=== PATIENT | female | born 1950 | race Caucasian/White ===

== ENCOUNTER 2022-01-22 08:42 | Outpatient (CLI) | payer MEDICARE, SELFPAY ==
--- NOTE | 2022-01-22 08:58 | MM_ITS ---
WS: [id number] BILATERAL SCREENING DIGITAL BREAST TOMOSYNTHESIS MAMMOGRAM WITH CAD HISTORY: SCREEN COMPARISON: 07/04/2020 Bilateral CC and MLO views with tomosynthesis and synthetic mammography submitted. Computer aided det ection analyzed. Breast composition: There are scattered areas of fibroglandular density. No suspicious masses, microc alcifications or architectural distortion. Stable area of mild architectural distortion in the LEFT l ateral breast seen on the CC projection. MM/[place] [id number] IMPRESSION: BI-RADS: 2-Benign FOLLOW UP: 1 Year Follow-up
== END 2022-01-22 08:43 | disposition home or self-care (01) ==
PROVIDERS: Visit Provider Family Medicine
DX: Z12.31 Encounter for screening mammogram for malignant neoplasm of breast (principal)
CPT/HCPCS: 77063; 77067

== ENCOUNTER 2022-09-01 12:42 | Outpatient (CLI) | payer MEDICARE, SELFPAY ==
--- NOTE | 2022-09-01 12:51 | XRR_ITS ---
PROCEDURE INFORMATION: Exam: XR Chest Exam date and time: 09/01/2022 1:08 PM Age: 71 years old Clinical indication: Condition or disease; Lung condition and disease; Asthma; Prior surgery; Surgery type: Lynx, for acid reflux; Additional info: Asthma exacerbation TECHNIQUE: Imaging protocol: Radiologic exam of the chest. Views: 2 views. COMPARISON: No relevant prior studies available. FINDINGS: Tubes, catheters and devices: LINX device noted. Surgical clips are seen projecting over the right axillary region. Lungs: Unremarkable. No consolidation. Pleural spaces: Unremarkable. No pleural effusion. No pneumothorax. Heart/Mediastinum: Unremarkable. No cardiomegaly. Bones/joints: Degenerative changes of the spine seen. Organs: Cholecystectomy clips project over the right upper quadrant. XR/XR chest 2V* [id number] IMPRESSION: No evidence of active cardiopulmonary disease.
== END 2022-09-01 12:43 | disposition home or self-care (01) ==
LOC: RAD 12:45
PROVIDERS: PCP Family Medicine; Visit Provider Family Medicine
DX: J45.901 Unspecified asthma with (acute) exacerbation (principal)
CPT/HCPCS: 71046

== ENCOUNTER → 2022-09-24 11:11 | Outpatient (BNVA) | payer MEDICARE, SELFPAY | PROVIDERS: PCP Family Medicine; Visit Provider Family Medicine | DX: R73.03 Prediabetes (principal); N28.9 Disorder of kidney and ureter, unspecified; E78.5 Hyperlipidemia, unspecified; M79.603 Pain in arm, unspecified; F43.9 Reaction to severe stress, unspecified; F31.81 Bipolar II disorder | CPT/HCPCS: 80053; 80061; 83036; 84439; 84443; 85025 ==

== ENCOUNTER → 2022-11-30 13:37 | Outpatient (BNVA) | payer MEDICARE, SELFPAY | PROVIDERS: PCP Family Medicine; Visit Provider Nurse Practitioner Family | DX: M25.562 Pain in left knee (principal) | CPT/HCPCS: 73562 ==

== ENCOUNTER → 2022-12-03 10:15 | Outpatient (BNVA) | payer MEDICARE, SELFPAY | PROVIDERS: PCP Family Medicine; Visit Provider Nurse Practitioner Family | DX: S89.92XA Unspecified injury of left lower leg, initial encounter (principal); W01.0XXA Fall on same level from slipping, tripping and stumbling without subsequent striking against object, initial encounter; M17.12 Unilateral primary osteoarthritis, left knee | CPT/HCPCS: 20610; 99203; J1100; J2795; J3301 ==

== ENCOUNTER 2023-01-01 06:00 | Outpatient (CLI) | payer MEDICARE, SELFPAY | END 2023-01-01 06:01 | disposition home or self-care (01) | LOC: SPT 01-04 12:24 | PROVIDERS: PCP Family Medicine; Visit Provider Student in an Organized Health Care Education/Training Program | DX: Z46.89 Encounter for fitting and adjustment of other specified devices (principal); M25.562 Pain in left knee; M17.12 Unilateral primary osteoarthritis, left knee | CPT/HCPCS: 97760; 99204; L1812 ==

== ENCOUNTER → 2023-01-04 08:41 | Outpatient (BNVA) | payer MEDICARE, SELFPAY | PROVIDERS: PCP Family Medicine; Visit Provider Family Medicine | DX: R79.89 Other specified abnormal findings of blood chemistry (principal); N28.9 Disorder of kidney and ureter, unspecified; R73.03 Prediabetes | CPT/HCPCS: 84439; 84443; 85025 ==

== ENCOUNTER → 2023-02-01 08:34 | Outpatient (BNVA) | payer MEDICARE, SELFPAY | PROVIDERS: PCP Family Medicine; Visit Provider Student in an Organized Health Care Education/Training Program | DX: M75.41 Impingement syndrome of right shoulder (principal) | CPT/HCPCS: 20610; 73030; 99214; J3301 ==

== ENCOUNTER → 2023-02-15 08:40 | Outpatient (BNVA) | payer MEDICARE, SELFPAY | PROVIDERS: PCP Family Medicine; Visit Provider Student in an Organized Health Care Education/Training Program | DX: M17.12 Unilateral primary osteoarthritis, left knee | CPT/HCPCS: 99213 ==

== ENCOUNTER → 2023-03-30 08:31 | Outpatient (BNVA) | payer MEDICARE, SELFPAY | PROVIDERS: PCP Family Medicine; Visit Provider Family Medicine | DX: R79.89 Other specified abnormal findings of blood chemistry (principal); E78.5 Hyperlipidemia, unspecified | CPT/HCPCS: 84439; 84443 ==

== ENCOUNTER → 2023-04-13 11:09 | Outpatient (BNVA) | payer MEDICARE, SELFPAY | PROVIDERS: PCP Family Medicine; Visit Provider Student in an Organized Health Care Education/Training Program | DX: M17.12 Unilateral primary osteoarthritis, left knee (principal) | CPT/HCPCS: 99213 ==

== ENCOUNTER → 2023-05-04 15:15 | Outpatient (BNVA) | payer MEDICARE, SELFPAY | PROVIDERS: PCP Family Medicine; Visit Provider Physician Assistant | DX: M17.12 Unilateral primary osteoarthritis, left knee | CPT/HCPCS: 99214 ==

== ENCOUNTER 2023-05-28 15:30 | Outpatient (CLI) | payer MEDICARE, SELFPAY ==
--- NOTE | 2023-05-28 16:00 | CT_ITS ---
WS: [id number] CT LEFT knee, noncontrast HISTORY: M17.12 - Unilateral primary osteoarthritis, left knee TECHNIQUE: Protocol for YVROSE total knee replacement has been obtained. This includes axial imaging th rough the LEFT hip, LEFT knee and LEFT ankle. DLP: 984.17 mGy.cm COMPARISON: 11/30/2022 Pelvis: Mild SI joint degeneration. Mild osteopenia. No destructive bone lesions. LEFT knee: No fracture or dislocation. Mild tricompartment arthritis, greatest involving the medial c ompartment. Small marginal osteophytes. Small suprapatellar joint effusion. LEFT ankle: Negative. IMPRESSION: CT imaging provided for YVROSE robotic total knee replacement.
== END 2023-05-28 15:31 | disposition home or self-care (01) ==
LOC: RAD 15:30
PROVIDERS: PCP Family Medicine; Visit Provider Student in an Organized Health Care Education/Training Program
DX: M17.12 Unilateral primary osteoarthritis, left knee (principal); M25.762 Osteophyte, left knee; M25.462 Effusion, left knee
CPT/HCPCS: 73700

== ENCOUNTER 2023-05-31 11:06 | Outpatient (CLI) | payer MEDICARE, SELFPAY ==
[2023-05-31 12:00] LABS: Add Urine Microscopic? NO; Charge for UA Resulting for Rev
[2023-05-31 12:02] LABS: Basophils % 0.8 %; Eosinophils # 0.1 10^3/uL (0.0-0.8); Eosinophils % 1.7 %; Hematocrit 46.5 % (36-47); Lymphocytes # 1.7 10^3/uL (0.8-4.8); Lymphocytes % 35.1 %; Mean Corpuscular Hemoglobin 32.3 pg (27-33); Mean Corpuscular Volume 100.9 fl (85-98); Mean Platelet Volume 8.3 fL (7.4-10.4); Monocytes # 0.3 10^3/uL (0.2-0.9); Monocytes % 6.5 %; Neutrophils # 2.66 10^3/uL (1.8-7.7); Neutrophils % 55.7 %; Nucleated Red Blood Cells % 0 %; Platelet Count 216 10^3/cmm (157-399); Red Blood Count 4.61 10^6/uL (3.85-5.65); Red Cell Distribution Width 12.6 % (12.1-15.1); White Blood Count 4.78 10^3/uL (3.29-11.43)
[2023-05-31 12:03] LABS: Bilirubin Urine Neg (Negative); Blood Urine Neg (Negative); Glucose Urine UA Norm (Normal); Ketones Urine Negative (Negative); Leukocyte Esterase Urine Negative (Negative); Nitrate Urine Negative (Negative); Protein Urine Neg (Negative); Specific Gravity, Urine 1.005 (1.005-1.030); Urine Appearance Clear (CLEAR); Urine Color Yellow (Yellow); Urobilinogen Urine Norm (Negative); pH Urine 7 (5-7)
[2023-05-31 12:21] LABS: Alanine Aminotransferase 18 U/L (0-33); Albumin Level 4.3 g/dL (3.5-5.2); Alkaline Phosphatase 50 U/L (35-105); Anion Gap 13.2 (5-19); Aspartate Amino Transferase 25 U/L (0-32); Blood Urea Nitrogen 16 mg/dL (8-23); Calcium 9.3 mg/dL (8.5-10.5); Carbon Dioxide 24 mmol/L (22-29); Chloride 108 mmol/L (98-107); Globulin 2.2 g/dL (1.3-4.6); Glucose 85 mg/dL (65-115); Osmolality Calculated 292 mOsm/kg (285-295); Potassium 4.2 mmol/L (3.5-5.1); Sodium 141 mmol/L (136-145); Total Bilirubin 0.4 mg/dL (0.15-1.2); Total Protein 6.5 g/dL (6.6-8.7)
== END 2023-05-31 11:07 | disposition home or self-care (01) ==
LOC: LAB 11:08
PROVIDERS: PCP Family Medicine; Visit Provider Physician Assistant
DX: Z01.818 Encounter for other preprocedural examination (principal); M17.12 Unilateral primary osteoarthritis, left knee
CPT/HCPCS: 36415; 80053; 81003; 85025

== ENCOUNTER → 2023-06-01 13:12 | Outpatient (BNVA) | payer MEDICARE, SELFPAY | PROVIDERS: PCP Family Medicine; Visit Provider Physician Assistant | DX: M17.12 Unilateral primary osteoarthritis, left knee (principal) | CPT/HCPCS: 99214 ==

== ENCOUNTER 2023-06-14 15:05 | Observation (INO) | payer MEDICARE, SELFPAY ==
[2023-06-14] VITALS (13 sets, daily range): BP systolic 100–136; BP diastolic 45–70; PULSE 68–82; RESP 16–18; TEMP 36.1–36.5; O2SAT 92–99; BMI 26.6
[2023-06-14] MEDS: acetaminophen 1,000 MG/100 ML PIGGYBACK 400 MG IV ×2 (08:06→16:43)
[2023-06-14] MEDS: ketorolac 30 mg/mL INJ IVP (08:06)
[2023-06-14] MEDS: lactated ringers 500 ML IV (08:06)
[2023-06-14] MEDS: sodium chloride 0.9% 1,000 ML 30 ML IV (08:07)
[2023-06-14 08:12] LABS: Glucose Point of Care 92 mg/dL (70-110)
--- NOTE | 2023-06-14 08:35 | ANES.PREANE2 ---
Pre-Anesthetic Assessment Height/Weight: Height 1.63 m Weight 70.307 kg Temp Pulse Resp BP Pulse Ox O2 Del Method 97.5 F L 80 16 136/68 96 Room Air 06/14/23 07:57 06/14/23 07:57 06/14/23 07:57 06/14/23 07:57 06/14/23 07:57 06/14/23 07:58 Preop Diagnosis: Left knee DJD Operation Date: 06/14/23 09:05 Proposed Procedures p Left Leno Robot Total Knee Arthroplasty(Left) - Baudilio Arredondo DO Familial anesthetic complications: None Was Beta Chelle taken within 24 hours: N/A Was Clonidine taken within 24 hours: N/A Last intake: Intake Last Liquid Date 06/13/23 Last Liquid Time 22:00 Last Solid Date 06/13/23 Last Solid Time 22:00 Social No alcohol and No tobacco Exam alert, oriented x 3, clear to auscultation bilaterally and regular rate & rhythm Airway Mallampati: Class I Dentition: full Pulmonary Asthma GI Gastroesophageal Reflux Disease Metabolic Diabetes Mellitus and Hyperlipidemia Anesthetic Plan ASA status: 3 Anesthesia: Regional (specify below) Risk of > 500 ml blood loss (7ml/kg in children): No Medications/Allergies Home Medications Medication Instructions Recorded Confirmed Last Taken Type atorvastatin 80 mg tablet 80 mg PO DAILY 02/20/22 06/14/23 06/13/23 History meclizine 25 mg tablet 25 mg PO DAILY PRN Dizziness 02/20/22 06/14/23 06/12/23 History rizatriptan 10 mg tablet 10 mg PO DIRECTED PRN Migraine 02/20/22 06/14/23 1 Week Ago History Headache ~06/07/23 fluticasone propionate 50 1 spray intranasal DAILY PRN 09/15/22 06/14/23 06/13/23 History mcg/actuation nasal allergies spray,suspension levocetirizine 5 mg tablet (Xyzal) 2.5 mg PO DAILY PRN allergies 09/15/22 06/14/23 06/13/23 History metformin 500 mg tablet 500 mg PO DAILY #90 tabs 09/24/22 06/14/23 06/13/23 Rx ibuprofen 800 mg tablet 800 mg PO Q8H PRN pain #20 tabs 11/30/22 06/14/23 06/12/23 Rx hinged knee brace #1 ea 01/01/23 06/14/23 Unknown Rx albuterol sulfate 90 mcg/actuation 2 puff inhalation Q4H PRN 03/15/23 06/14/23 06/12/23 Rx aerosol inhaler shortness of breath or wheezing #8.5 grams buspirone 10 mg tablet 10 mg PO BID #60 tabs 03/18/23 06/14/23 06/13/23 Rx clomipramine 50 mg capsule 100 mg PO DAILY #60 caps 03/18/23 06/14/23 06/13/23 Rx duloxetine 60 mg capsule,delayed 120 mg PO DAILY #60 caps 03/18/23 06/14/23 06/13/23 Rx release aripiprazole 15 mg tablet (Abilify) 15 mg PO DAILY #30 tabs 04/05/23 06/14/23 06/13/23 Rx omeprazole 40 mg capsule,delayed 40 mg PO BID #180 caps 05/10/23 06/14/23 06/13/23 Rx release topiramate 200 mg tablet 200 mg PO BID 06/14/23 06/14/23 06/13/23 History Allergies Allergy/AdvReac Type Severity Reaction Status Date / Time codeine Allergy ADR-Nausea Verified 06/14/23 08:21 Penicillins Allergy ALGY-Rash Verified 06/14/23 08:21 Current Medications Generic Name Dose Route Start Last Admin Trade Name Freq PRN Reason Stop Dose Admin Sodium Chloride 1,000 mls @ 30 mls/hr 06/14/23 07:45 06/14/23 08:07 Sodium Chloride 0.9% IV 06/15/23 07:44 30 mls/hr .Q24H SOFIA Administration PFSH Anesthesia Medical History Addictive gambling Kidney disease Psychiatric care Family History Other Chronic kidney disease (CKD) Diabetes Social History Smoking and tobacco/nicotine status: never used tobacco/nicotine Second hand smoke exposure: No Alcohol intake: former Substance/Drug Use: never Data Anesthesia Cardiac Studies: No Data to Display
[2023-06-14 08:52] LABS: Basophils # 0.1 10^3/uL (0.0-0.1); Basophils % 0.9 %; Eosinophils # 0.1 10^3/uL (0.0-0.8); Eosinophils % 2.1 %; Lymphocytes # 1.5 10^3/uL (0.8-4.8); Lymphocytes % 25.9 %; Mean Corpuscular HGB Conc 32.4 g/dL (30-55); Mean Corpuscular Volume 101.6 fl (85-98); Mean Platelet Volume 8.5 fL (7.4-10.4); Monocytes # 0.4 10^3/uL (0.2-0.9); Monocytes % 7.2 %; Neutrophils # 3.64 10^3/uL (1.8-7.7); Neutrophils % 63.7 %; Nucleated Red Blood Cells % 0 %; Platelet Count 214 10^3/cmm (157-399); Red Blood Count 4.43 10^6/uL (3.85-5.65); Red Cell Distribution Width 12.4 % (12.1-15.1); White Blood Count 5.71 10^3/uL (3.29-11.43)
[2023-06-14 09:00] LABS: Blood Urea Nitrogen 18 mg/dL (8-23); Calcium 8.8 mg/dL (8.5-10.5); Carbon Dioxide 23 mmol/L (22-29); Chloride 109 mmol/L (98-107); Glucose 93 mg/dL (65-115); Osmolality Calculated 294 mOsm/kg (285-295); Sodium 141 mmol/L (136-145)
[2023-06-14 09:15] LABS: Anion Gap 12.6 (5-19); Potassium 3.6 mmol/L (3.5-5.1)
--- NOTE | 2023-06-14 10:21 | ANES.PROC ---
Anesthesia Procedures Procedure/Date: 06/14/23 Nerve Block ^: Nerve Block 1: Main Anesthesia: spinal anesthesia block Time Out Performed: Yes Consent: requested by attending/covering physician, from patient, from other, risks and benefits reviewed and patient agrees to proceed Nerve block location: adductor canal (L) Anesthesia monitors applied: pulse oximetry, EKG, BP cuff and oxygen Nerve block position: supine Anesthetic Used: ropivicaine 0.5% (30 ml) and with decadron (4 mg) Ultrasound used to: recognize landmarks and visualize and ID femerol nerve Nerve Stimulator Used?: No Interscalene/Femoral BLK: 4 stimuplex 21 g needle used for position and inplane approach, visualize local anesthetic spread and no vascular puncture identified Injection: neg aspiration of heme Patient Tolerated Procedure: well Complications: none
--- NOTE | 2023-06-14 10:45 | W.PM.OPSUD ---
Surgery/Procedure H&P Update DATE OF PROCEDURE: June 14, 2023 DATE H&P PERFORMED: 06/02/23 H&P UPDATE INFORMATION: I have reviewed H&P completed within last 30 days, I have examined patient prior to procedure and No changes to prior documentation CHANGES TO PREVIOUS DOCUMENTATION: none PREOP DIAGNOSIS: Left knee DJD PRIMARY INDICATION FOR PROCEDURE: Left knee degenerative joint disease PLANNED PROCEDURE: Operation Date: 06/14/23 09:05 Proposed Procedures p Left Leno Robot Total Knee Arthroplasty(Left) - Baudilio Arredondo DO
[2023-06-14] MEDS: ceFAZolin 2,000 MG in sodium chloride 0.9% (plus) 50 ML 100 MG IV ×2 (11:14→19:31)
[2023-06-14] MEDS: tranexamic acid 1,000 mg/10mL SDV 1000 MG IV (11:20)
[2023-06-14] MEDS: ROPivacaine 0.2% Premix 100 mL 200 MG INTRA-ARTI (12:07)
[2023-06-14] MEDS: EPINEPHrine 1 mg/mL INJ XX (12:07)
[2023-06-14] MEDS: tranexamic acid 1,000 mg/10mL SDV 1000 MG XX (12:07)
[2023-06-14] MEDS: ketorolac 30 mg/mL INJ XX (12:07)
[2023-06-14] MEDS: vancomycin 1,000 MG SDV 1000 MG INTRA-ARTI (13:05)
--- NOTE | 2023-06-14 13:41 | W.PM.BPON ---
Date of Procedure: 06/14/2023 Surgeon: Baduilio Arredondo DO Parole Board Member(s): PAZ Mckeon Procedure(s) performed: Left total knee arthroplasty Leno robotic assisted Findings of the procedure(s): Left knee severe degenerative joint disease tricompartmental arthritic changes noted, left total knee arthroplasty procedure went as planned without any complications or issues Estimated blood loss: 50 mL Specimen(s) removed: Tibia on femur bone cuts removed Post-operative diagnosis: Left knee severe tricompartmental arthritis
--- NOTE | 2023-06-14 13:45 | P.OP_ITS ---
Operative Report Date of procedure: June 14, 2023 Surgeon: Baudilio Arredondo DO Web Marketing Analyst: PAZ Mckeon Procedure: Preoperative diagnosis: Left knee degenerative joint disease Post-op diagnosis: Same Procedure done: Left total knee arthroplasty, cemented?robotic assisted Leno Implants: [place] triathlon size 4 femur CR cemented left Jesus triathlon size? 3 tibia universal baseplate cemented Jesus triathlon symmetric patella size 31 mm [place] triathlon polyethylene 9mm Surgeon: Baudilio Arredondo DO Estimated blood loss: 50 mL Tourniquet 60minutes IV fluids: 1200 mL Urine output: 600 mL Complications: None Condition: stable Disposition: floor Brief History: Patient is a 72-year-old female with with chronic left knee degenerative joint disease.? Patient has been worked up in the outpatient setting in the orthopedic office at this point time through shared decision making given [id number] arthritis as well as failed conservative treatment, and pt would like to proceed with a left total knee arthroplasty.? Through shared decision making elected to proceed with surgical intervention for left total knee arthroplasty.? We talked about continued conservative treatment and surgical intervention as far as the risk benefits complications alternatives surgical and nonsurgical treatment options.? At this point time understanding patient risks with surgery he agrees to proceed with surgical intervention.? Once again? risk with surgery include but are not limited to make it better make it worse blood clot, heart attack, stroke, on the table, infection, injury to nerves or vessels, persistent pain, arthrofibrosis, implant failure.? Understanding these risks patient agrees to proceed with surgical intervention consent was obtained in the office.? All questions answered. Procedure: Patient was seen and evaluated in the preoperative holding area.? Consent was reviewed and signed with patient with plan for left total knee arthroplasty.? All questions answered.? Correct extremity marked.? Patient seen and evaluated by the anesthesia department and once cleared for surgery was taken back to the operative suite.? Patient was placed into a supine position on the OR table.? All bony prominences were well-padded.? Patient was appropriately secured to the bed.? Patient underwent anesthesia per the anesthesia department.? Patient received spinal anesthesia and? Olivera catheter was placed.? A nonsterile tourniquet was applied to the left thigh.? At this point in time a final timeout performed.? Patient received appropriate preoperative antibiotics and TXA. Next the left lower extremity was then prepped and draped in standard orthopedic fashion. Esmarch tourniquet was used exsanguinate the left lower extremity.? Tourniquet was insufflated to 250 mmHg. A standard anterior incision was made over midline of the knee.? Sharp scalpel excision through skin and subcutaneous tissue full-thickness skin flaps were made.? Fascia was elevated off of the extensor retinaculum was stable with medial parapatellar arthrotomy was then made.? The performed standard sequential releases..? Immediately on entry into the joint patient was found to have severe eburnated bone and tricompartmental arthritic changes noted.? With significant osteophyte formation.? Next the the patella was then stuffed and the knee was then flexed.?? Rolando was placed superiorly around the anterior aspect of the femur this was freed of synovium and I subsequently then placed by 2 femur pins to establish my femur arrays for the Leno robot.? These were then placed bicortically and? femur array was then appropriately secured with appropriate visualization.? Next attention was turned towards the tibial rays.? These were then drilled sequentially bicortically in parallel fashion and intraincisional.? I then placed my guide as well as my tibial array on in place.? This was appropriately secured and had excellent visualization with the Leno robot.? Next the tibial checkpoint as well as femur checkpoint were then placed.? At this point time I then subsequently established my head center as well as my medial lateral malleoli as well as my checkpoints.? Next utilizing standard [employer] technology I then mapped out the appropriate points and confirmation points around the femur as well as the tibia in standard fashion.? Once this was then done I then removed all osteophytes in preparation for dynamic testing.? All osteophytes were removed as well as I removed the ACL and the PCL was excised due to its significant tearing and degeneration noted.? At this point time the knee was brought into full extension and we performed our standard evaluation of our gap balancing stressing his ligaments and extension as well as flexion appropriate adjustments were made to have appropriate gap balancing in both flexion and extension.? This plan for final counts.? We get a preoperative plan evaluating our implants which was a size 4 femur and a size 3 tibia.? Next we brought in the Leno robot and sequentially made our femur cuts.? All excess bony cuts were then removed.? Finally we made our tibial cut.? Once this was done a standard PCL retractor was then placed into this position I excised the medial and lateral meniscus.? The tibial cut was then subsequently removed all excess bony debris was removed.? I then utilized a lamina yarn sizer and remove the posterior osteophytes.? At this point time sized the tibia and confirmed this was a size 3.? I utilized our blunt probe to establish rotation of tibial implant.? Once this was done I then placed my tibia size 3 trial in appropriate position and then subsequently placed tibial pins to hold this into place placed a size 9 mm poly as well as a size 4 femur which was appropriately impacted in place knee was then subsequently brought into extension. Trials were then assessed, this was stable with varus valgus stress in extension as well as had symmetrical translation when brought into flexion demonstrating symmetrical gaps. I had excellent balance gaps in flexion and extension with varus and valgus stresses.? At this point I was satisfied with these implants these were then verified and opened on the back table size 3 tibia, size4 femur,? size 9 mm polythickness.? We did confirm appropriate gap balancing and stresses as well as alignment utilizingMaurice Burr and were satisfied with this plan.? ?At this point time with my trials in place I then towel clip the patella everted this made appropriate measurements subsequently utilizing freehand technique performed by patellar resurfacing this was confirmed to be appropriate resection and subsequently sized to be a 31 mm symmetric.? My drill peg guides were then clamped and appropriate position and appropriate position in the pa tella for appropriate tracking and parallel with the joint.? Pegs were drilled trial implant was placed and the knee was then subsequently ranged and found to have excellent patellar tracking.? Femur pegs were then drilled.? Satisfied with our tibial placement rotation I then utilized the keel punch and prepped the tibia.? At this point time all of our trial implants were removed.? All checkpoints as well as guidepins and arrays were removed and appropriate counts made.? The wound bed? was thoroughly irrigated and dried and prepped for cementation.? Cement was mixed on the back table.? Once cement was ready this was then covered onto the tibia and the tibial baseplate was then impacted and all excess cement was removed.? Next the polyethylene was then impacted into place on the tibial baseplate.? Next cement was placed onto the femur as well as under the femur implants and impacted in to place and all excess cement was extruded and removed.? Knee was taken into full extension? to clear all excess cement was removed.? Warm saline was placed over the joint.? I then towel clip patella and dried for cementation. cemented the patella into place.? This was all clamped and the cement was allowed to cure.? Thorough irrigation performed with pulse lavage.? I then placed my periarticular injection while the cement was curing.? Once cured the knee was taken through range of motion and had excellent stability and gaps were balanced in flexion and extension.? Tourniquet was then deflated. hemostasis satisfactory with electrocautery.? Next I then subsequently closed the capsule with Ethibond suture as well as a running strata fix suture.? Knee was then taken through range of motion 30 times.? Next the skin was then closed in layered fashion of running stratifix sutures of deep and subcutenous tissue and skin.? ?closed in flexion and Prineo glue was then placed over the incision this allowed to cure.? Incision was covered with OpSite, with ABDs soft roll and Adonis wrap.? Patient was then awakened from anesthesia and taken to PACU in stable condition. Disposition: Patient taken to PACU in stable condition will be admitted to the floor for pain control PT/OT weight-bear as tolerated left lower extremity dressing changes as needed, DVT prophylaxis. Pain control. Patient will receive appropriate postoperative antibiotics. patient will be seen today by the internal medicine team for medical management.? Patient will follow up with the office in 2 weeks.? Patient understands agrees with current plan.? All questions answered.
--- NOTE | 2023-06-14 13:56 | XRR_ITS ---
PROCEDURE INFORMATION: Exam: XR Left Knee Exam date and time: 06/14/2023 3:00 PM Age: 72 years old Clinical indication: Device placement; Joint replacement hardware; Prior surgery; Surgery date: Post-operative (0-2 days); Surgery type: L tka; Additional info: Post L tka, do in pacu TECHNIQUE: Imaging protocol: Radiologic exam of the left knee. Views: 1 or 2 views. COMPARISON: CT knee LT [facility] [id number] 05/28/2023 4:14 PM FINDINGS: Bones/joints: Total-knee replacement. Anatomic alignment. No fracture or dislocation. No lytic or sclerotic bone lesion. Periarticular gas. Soft tissues: Normal. XR/XR knee LT 1-2V [id number] IMPRESSION: Normal following replacement.
--- NOTE | 2023-06-14 13:57 | PM.PACU ---
PACU note Narrative: Patient taken to PACU in stable condition seen and examined spinal anesthesia still on affect unable to assess motor or sensory. Left lower extremities warm well-perfused brisk capillary refill less than 2 seconds distal pulses are palpable. Dressing on in place clean dry and intact. Exam: awake Disposition: admitted
--- NOTE | 2023-06-14 15:10 | PM.CONSULT ---
Providers/Reason For Consult Consulting Physician/Specialty*: Dr. Lucero/internal medicine Reason for Consult*: Medical comorbidities Requesting Physician: Dr. Arredondo Attending Physician: Baudilio Arredondo DO Primary Care Provider: Bart Ronquillo DO History of Present Illness History of Present Illness Donna Lerma is a 72 year old female with past medical history of prediabetes, bipolar disorder, asthma who underwent left knee arthroplasty with orthopedics today. Patient seen in PACU. Postoperatively patient is awake and alert, lying comfortably in bed on room air with vitals noted to be blood pressure of 100/60, heart rate of 75 bpm. Medicine was consulted for management of chronic medical conditions. Patient is on as needed inhalers. States she is admitted to the hospital once or twice a year for asthma exacerbation with last episode around 6 months ago. She last used her inhalers 4 to 5 days ago. Denies any chest pain, difficulty in breathing on ambulation. Review of Systems General: Reports: 10 or more systems reviewed and unremarkable except in HPI and below Const: Denies: fever(s), chills, body aches, change in appetite, change in weight, malaise, night sweats, diaphoresis, change in sleep pattern, daytime sleepiness or snoring Eyes: Denies: change in vision, blurry vision, photophobia, eye discomfort or eye discharge ENMT: Denies: throat pain, enlarged tonsils, hoarseness, mouth pain, oral sores, dry mouth, tinnitus, nasal congestion or post nasal drip Card: Denies: chest pain, palpitations, irregular heart rhythm, edema, swelling of feet/ankles, lightheadedness, syncope, pre-syncope, dyspnea on exertion, orthopnea, leg pain with exertion or acrocyanosis Resp: Denies: dyspnea, productive cough, non-productive cough, wheezing, stridor, pain on inspiration, change in phlegm color, hemoptysis or chest congestion GI: Denies: abdominal pain, nausea, vomiting, hematemesis, coffee ground emesis, dysphagia, heartburn, diarrhea, constipation, bloating, GI cramping, change in bowel habits, pain on defecation, hematochezia or melena : Denies: flank pain, dysuria, urinary frequency, urinary urgency, urinary hesitancy, nocturia or hematuria Musc: Denies: neck pain, back pain, extremity pain, joint pain, joint swelling, joint redness, joint stiffness or limited range of motion Neuro: Denies: headache(s), numbness in extremities, weakness in extremities, sensory changes, lack of coordination, difficulty walking, frequent falls, dizziness, vertigo, confusion, Slurred speech present, difficulty communicating thoughts or seizure-like activity Psych: Denies: anxiety, depression, mood swings, panic attacks, hopelessness or irritability Endo: Denies: polyuria, polydipsia, tired all the time, cold intolerance, excessive sweating, flushing or heat intolerance Tang/Lymph: Denies: easy bruising or easy bleeding All/Imm: Denies: tongue swelling, facial swelling or acute wheezing Medications/Allergies Home Medications Medication Instructions Recorded Confirmed Last Taken Type atorvastatin 80 mg tablet 80 mg PO DAILY 02/20/22 06/14/23 06/13/23 History meclizine 25 mg tablet 25 mg PO DAILY PRN Dizziness 02/20/22 06/14/23 06/12/23 History rizatriptan 10 mg tablet 10 mg PO DIRECTED PRN Migraine 02/20/22 06/14/23 1 Week Ago History Headache ~06/07/23 fluticasone propionate 50 1 spray intranasal DAILY PRN 09/15/22 06/14/23 06/13/23 History mcg/actuation nasal allergies spray,suspension levocetirizine 5 mg tablet (Xyzal) 2.5 mg PO DAILY PRN allergies 09/15/22 06/14/23 06/13/23 History metformin 500 mg tablet 500 mg PO DAILY #90 tabs 09/24/22 06/14/23 06/13/23 Rx ibuprofen 800 mg tablet 800 mg PO Q8H PRN pain #20 tabs 11/30/22 06/14/23 06/12/23 Rx hinged knee brace #1 ea 01/01/23 06/14/23 Unknown Rx albuterol sulfate 90 mcg/actuation 2 puff inhalation Q4H PRN 03/15/23 06/14/23 06/12/23 Rx aerosol inhaler shortness of breath or wheezing #8.5 grams buspirone 10 mg tablet 10 mg PO BID #60 tabs 03/18/23 06/14/23 06/13/23 Rx clomipramine 50 mg capsule 100 mg PO DAILY #60 caps 03/18/23 06/14/23 06/13/23 Rx duloxetine 60 mg capsule,delayed 120 mg PO DAILY #60 caps 03/18/23 06/14/23 06/13/23 Rx release aripiprazole 15 mg tablet (Abilify) 15 mg PO DAILY #30 tabs 04/05/23 06/14/23 06/13/23 Rx omeprazole 40 mg capsule,delayed 40 mg PO BID #180 caps 05/10/23 06/14/23 06/13/23 Rx release topiramate 200 mg tablet 200 mg PO BID 06/14/23 06/14/23 06/13/23 History Allergies Allergy/AdvReac Type Severity Reaction Status Date / Time codeine Allergy ADR-Nausea Verified 06/14/23 08:21 Penicillins Allergy ALGY-Rash Verified 06/14/23 08:21 PFSH Acute PFSH: Medical History (Updated 06/14/23 @ 15:15 by Cole Lucero MD) Addictive gambling Asthma Kidney disease Prediabetes Psychiatric care Surgical History (Updated 06/14/23 @ 15:15 by Cole Lucero MD) History of appendectomy History of carpal tunnel release bilateral History of cholecystectomy History of tonsillectomy History of total knee arthroplasty right S/P cervical spinal fusion Family History Other Chronic kidney disease (CKD) Diabetes Social History Smoking and tobacco/nicotine status: never used tobacco/nicotine Second hand smoke exposure: No Alcohol intake: former Substance/Drug Use: never Vitals/I&O/Wt Last Vital Signs Temp 97.0 F L 06/14/23 13:43 Pulse 80 06/14/23 14:12 Resp 16 06/14/23 14:12 BP 100/59 06/14/23 14:12 Pulse Ox 94 06/14/23 14:12 O2 Del Method Room Air 06/14/23 14:12 06/14/23 06/14/23 06/14/23 06:59 14:59 22:59 Intake Total 1650 / 1650 Output Total 650 / 650 Balance 1000 / 1000 Weight last 48 hrs Weight 70.307 kg Physical Exam Narrative: General: No acute distress, AO x3 HEENT: PERRLA, pupils bilaterally equal and reactive Chest: Normal vesicular breath sounds, no added sounds, equal good air entry bilaterally CVS: S1-S2 regular, no murmurs, no tachycardia, no gallops, no rubs Abdomen: Soft, nontender, no organomegaly, bowel sounds present Neuro: No focal deficits, no facial deformity, AO x3, power 5/5 in all limbs Urinary Catheter Management: Olivera: Cath Placed During This Visit: yes Urinary Catheter Date of Insertion: 06/14/23 Urinary Catheter Time of Insertion: 11:30 Data 06/14/23 08:10 06/14/23 08:10 A&P Assessment and plan (1) Encounter for postoperative care: Monitor hemoglobin. Post left knee arthroplasty. PT/pain medication, anticoagulation, perioperative antibiotics as per primary team. Diet to be advanced as per primary team. (2) S/P total knee arthroplasty: (3) Bipolar II disorder: Restart home medications. (4) Prediabetes: Check A1c. Insulin sliding scale low-dose protocol. Plan Asthma: No active exacerbation. DuoNebs as needed. Check vitamin B12, folate levels. Monitor CBC, CMP. Appreciate recent A1c and lipid panel, TSH in earlier this year. Thank you for consulting and involving us in the care of Ms. Lerma. Please call back with any questions. Consult Attestations Medical Necessity Statement: Requires further hospitalization for postoperative care for patient to underwent total knee arthroplasty. Diagnoses Encounter for postoperative care Z48.89 S/P total knee arthroplasty Z96.659 Bipolar II disorder F31.81 Prediabetes R73.03
[2023-06-14 15:47] LABS: Iron 49 ug/dL (37-145); Percent Saturation 22.8 % (20-50); Total Iron Binding Capacity 214 mcg/dl; Unsaturated Iron Binding 165 ug/dL (112-347)
[2023-06-14 16:02] LABS: Vitamin B12 704 pg/mL (232-1245)
[2023-06-14] MEDS: ketorolac 30 mg/mL INJ 15 MG IVP ×2 (16:43→22:20)
[2023-06-14] MEDS: chlorhexidine gluconate 0.12% Btl 473 mL 30 ML MUCOUS MEM ×2 (18:41→20:37)
[2023-06-14] MEDS: mupirocin oint 22 gm 1 APPLIC NASAL (18:41)
[2023-06-14] MEDS: docusate sodium 100 mg Capsule PO (18:42)
[2023-06-14] MEDS: BuSPIRONE 10 mg Tablet PO (18:43)
[2023-06-14] MEDS: iron polysaccharide complex 150 mg Capsule PO (18:43)
[2023-06-14] MEDS: topiramate 100 mg Tablet 200 MG PO (18:43)
[2023-06-14] MEDS: pantoprazole DR 40 mg Tablet PO (18:43)
[2023-06-14] MEDS: calcium carb-vit d 600mg/400unit 1 Tablet 1 EACH PO (18:43)
[2023-06-14] MEDS: tranexamic acid 1,000 MG/100 ML PREMIX 600 MG IV (20:29)
[2023-06-14] MEDS: atorvastatin 40 mg Tablet 80 MG PO (20:37)
[2023-06-14] MEDS: TRAMadol 50 mg Tablet PO (20:37)
[2023-06-14] MEDS: lactated ringers 1,000 ML 100 ML IV (22:38)
[2023-06-15] VITALS (9 sets, daily range): BP systolic 76–117; BP diastolic 43–65; PULSE 70–88; RESP 15–18; TEMP 36.8–37.2; O2SAT 95–97
[2023-06-15] MEDS: acetaminophen 1,000 MG/100 ML PIGGYBACK 400 MG IV ×2 (00:35→09:11)
[2023-06-15] MEDS: ceFAZolin 2,000 MG in sodium chloride 0.9% (plus) 50 ML 100 MG IV ×2 (02:43→11:27)
[2023-06-15 09:11] LABS: Anion Gap 13.8 (5-19); Blood Urea Nitrogen 11 mg/dL (8-23); Calcium 8.6 mg/dL (8.5-10.5); Carbon Dioxide 20 mmol/L (22-29); Chloride 113 mmol/L (98-107); Creatinine Clr Calc Pharmacy 61.1544; Glucose 104 mg/dL (65-115); Osmolality Calculated 296 mOsm/kg (285-295); Potassium 3.8 mmol/L (3.5-5.1); Sodium 143 mmol/L (136-145)
[2023-06-15] MEDS: lactated ringers 1,000 ML 100 ML IV ×2 (09:11→16:17)
[2023-06-15 09:19] LABS: Basophils % 0.1 %; Eosinophils % 0.1 %; Hematocrit 39.4 % (36-47); Lymphocytes # 1.5 10^3/uL (0.8-4.8); Lymphocytes % 13.3 %; Mean Corpuscular HGB Conc 32.2 g/dL (30-55); Mean Corpuscular Hemoglobin 32.7 pg (27-33); Mean Corpuscular Volume 101.5 fl (85-98); Mean Platelet Volume 8.3 fL (7.4-10.4); Monocytes # 0.8 10^3/uL (0.2-0.9); Monocytes % 6.9 %; Neutrophils % 79.3 %; Nucleated Red Blood Cells % 0 %; Platelet Count 202 10^3/cmm (157-399); Red Blood Count 3.88 10^6/uL (3.85-5.65); Red Cell Distribution Width 12.3 % (12.1-15.1); White Blood Count 11.09 10^3/uL (3.29-11.43)
[2023-06-15] MEDS: duloxetine 60 mg Capsule 120 MG PO (09:28)
[2023-06-15] MEDS: BuSPIRONE 10 mg Tablet PO ×2 (09:28→19:57)
[2023-06-15] MEDS: ARIPiprazole 10 mg Tablet 15 MG PO (09:29)
[2023-06-15] MEDS: iron polysaccharide complex 150 mg Capsule PO ×2 (09:30→19:57)
[2023-06-15] MEDS: apixaban 5 mg Tablet 2.5 MG PO ×2 (09:30→19:58)
[2023-06-15] MEDS: calcium carb-vit d 600mg/400unit 1 Tablet 1 EACH PO ×2 (09:31→19:57)
[2023-06-15] MEDS: multivitamin therapeutic Tablet 1 TAB PO (09:33)
[2023-06-15] MEDS: metformin 500 mg Tablet PO (09:33)
[2023-06-15] MEDS: docusate sodium 100 mg Capsule PO ×2 (09:33→19:57)
[2023-06-15] MEDS: chlorhexidine gluconate 0.12% Btl 473 mL 30 ML MUCOUS MEM ×4 (09:34→22:32)
[2023-06-15] MEDS: pantoprazole DR 40 mg Tablet PO ×2 (09:34→21:03)
[2023-06-15] MEDS: mupirocin oint 22 gm 1 APPLIC NASAL ×2 (09:34→19:56)
[2023-06-15] MEDS: topiramate 100 mg Tablet 200 MG PO ×2 (09:39→19:57)
[2023-06-15 09:46] LABS: Folate Level > 20.0 ng/mL (4.8-37.3)
[2023-06-15] MEDS: ketorolac 30 mg/mL INJ 15 MG IVP ×2 (11:27→23:00)
[2023-06-15] MEDS: oxyCODONE 5 mg IR Tab/Cap PO ×2 (12:19→19:15)
--- NOTE | 2023-06-15 12:44 | PC.NURSE ---
PT UP TO BATHROOM WITH STAND BY ASSISTANCE AND VOIDED LARGE AMOUNT BUT SHE MISSED THE COLLECTION HAT. PT TOLERATED BEING UP WELL.
--- NOTE | 2023-06-15 12:59 | P.PN_ITS ---
Subjective 2 Subjective: Patient seen and examined. She is having some issues with headaches and orthostatic hypotension. Discussed with internal medicine and would like to keep patient for continued observation and fluid assistance. Labs reviewed stable hemoglobin. Vitals/I&O/Wt Last Vital Signs Temp 98.2 F 06/15/23 11:21 Pulse 73 06/15/23 11:21 Resp 18 06/15/23 12:19 BP 96/62 06/15/23 11:21 Pulse Ox 97 06/15/23 11:21 O2 Del Method Room Air 06/15/23 11:21 06/14/23 06/15/23 06/15/23 22:59 06:59 14:59 Intake Total 150 / 1800 150 / 1950 1600 / 1600 Output Total 1200 / 1850 800 / 2650 300 / 300 Balance -1050 / -50 -650 / -700 1300 / 1300 Weight last 48 hrs Weight 155 lb Physical Exam 2 Narrative: Left knee examination dressings are in place clean dry intact compartments soft compressible calf soft and nontender patient is able to wiggle toes plantarflex and dorsiflex ankle sensations intact to light touch distally. Distal pulses palpable Const: COMMON NORMALS: no acute distress, healthy appearing and alert HENMT: COMMON NORMALS: normocephalic and atraumatic HEAD & SCALP: n ormocephalic and atraumatic Resp: COMMON NORMALS: normal respiratory effort and No retractions Cardio: COMMON NORMALS: Peripheral pulses 2+ throughout PERIPHERAL PULSES: Peripheral pulses 2+ throughout Neuro: SENSORIUM/ORIENTATION: Yes alert Urinary Catheter Management: Olivera: Cath Placed During This Visit: yes, but has since been removed by the nurse Reason for Continuing Indwelling Catheter: Decision to DC Catheter Urinary Catheter Date of Insertion: 06/14/23 Urinary Catheter Time of Insertion: 11: Date Urinary Catheter Removed: 06/15/23 Time Urinary Catheter Discontinued: 08:30 Data 06/17/23 07:09 06/17/23 07:09 Xray Ortho: My impression: Postoperative x-rays demonstrate stable left total knee arthroplasty with appropriate cement mantle and implantation with no evidence of periprosthetic fracture dislocation or hardware failure or loosening. A&P Assessment and plan (1) S/P total knee arthroplasty: Plan PT/OT Weight-bear as tolerated operative extremity DVT prophylaxis Pain control Resume diet Reviewed labs, reviewed imaging Internal medicine on board appreciate assistance Ice and elevate as needed Patient will require additional hospitalization given she having orthostatic hypotension and dizziness as well as headaches. Attestations 2 Medical Necessity Statement*: Continued hospitalization secondary to orthostatic hypotension postoperative from right total knee arthroplasty as well as persistent headaches and dizziness. Coding Level of Care Code Acute Code for Chg Fwd Diagnoses S/P total knee arthroplasty Z96.659 Time Spent (min) 20
--- NOTE | 2023-06-15 13:01 | ANE.PACU2 ---
Inpatient post-anesthesia follow up: Airway intact: Yes Vital signs: Temperature 98.2 F Pulse Rate 73 Respiratory Rate 18 Blood Pressure 96/62 Pulse Oximetry 97 Oxygen Delivery Me thod Room Air Oxygen Flow Rate Fraction of Inspir ed Oxygen Hydration adequate: Yes Nausea and vomiting: No Pain level: 5 Mental status: Baseline Additional Comments: Called for PDPH. Due to anticoagulation and patient desire to avoid possible 2nd Dural puncture associated with blood patch, aminophylline infusion was administered to help allieviate severity of symptoms. Upon recheck in afternoon, patient states headache has improved since this AM.
--- NOTE | 2023-06-15 15:39 | PC.NURSE ---
PT WENT TO GET PATIENT UP TO WALK AND THEN SHE C/O BEING DIZZY AND SO THEY TOOK HER B/P WHILE SHE WAS SITTING ON SIDE OF THE BED. DR. CHRISTY WAS NOTIFIED OF THIS AND THAT PT WAS GOING TO COME BACK LATER AND CHECK ON HER AND DR. CHRISTY TOLD ME THAT MEDICAL NEEDS TO COME AND SEE HER SINCE SHE HAD B/P ISSUES.
--- NOTE | 2023-06-15 16:03 | PC.NURSE ---
1555 BLOOD PRESSURE AFTER GOING TO BATHROOM 100/61. ALL OF THESE BLOOD PRESSURES WERE GIVEN TO DR. ERICKSON
[2023-06-15 16:34] LABS: Hematocrit 35.8 % (36-47)
--- NOTE | 2023-06-15 16:52 | P.PN_ITS ---
Subjective 2 Subjective: No acute events overnight. Patient was to be discharged today but could not be discharged as during physical therapy she started developing dizziness and was found to have low blood pressures. Patient was found to be orthostatic positive. Patient was complaining of dizziness. Otherwise denies any nausea, vomiting, headache. Vitals/I&O/Wt Last Vital Signs Temp 98.2 F 06/15/23 11:21 Pulse 83 06/15/23 15:55 Resp 16 06/15/23 14:35 BP 100/61 06/15/23 15:55 Pulse Ox 97 06/15/23 11:21 O2 Del Method Room Air 06/15/23 11:21 06/15/23 06/15/23 06/15/23 06:59 14:59 22:59 Intake Total 150 / 1950 1600 / 1600 710 / 2310 Output Total 800 / 2650 300 / 300 Balance -650 / -700 1300 / 1300 710 / 2010 Weight last 48 hrs Weight 70.307 kg Physical Exam 2 Narrative: General: No acute distress, AO x3 HEENT: PERRLA, pupils bilaterally equal and reactive Chest: Normal vesicular breath sounds, no added sounds, equal good air entry bilaterally CVS: S1-S2 regular, no murmurs, no tachycardia, no gallops, no rubs Abdomen: Soft, nontender, no organomegaly, bowel sounds present Neuro: No focal deficits, no facial deformity, AO x3, power 5/5 in all limbs Urinary Catheter Management: Olivera: Cath Placed During This Visit: yes, but has since been removed by the nurse Reason for Continuing Indwelling Catheter: Decision to DC Catheter Urinary Catheter Date of Insertion: 06/14/23 Urinary Catheter Time of Insertion: 11: Date Urinary Catheter Removed: 06/15/23 Time Urinary Catheter Discontinued: 08:30 Data 06/15/23 16:28 06/15/23 05:20 A&P Assessment and plan (1) Encounter for postoperative care: Monitor hemoglobin. Post left knee arthroplasty. PT/pain medication, anticoagulation, perioperative antibiotics as per primary team. Diet to be advanced as per primary team. (2) S/P total knee arthroplasty: (3) Bipolar II disorder: Restart home medications. (4) Prediabetes: Check A1c. Insulin sliding scale low-dose protocol. (5) Hypotension: Postoperative. Most likely in setting of blood loss. No active signs of infection. Patient has no leukocytosis, no fever. Patient is not on antihypertensives at home. Continue with IV fluids at 125 cc/h. 500 cc IV bolus. Repeat H&H. Transfuse if patient remains hemodynamically unstable or if hemoglobin below 8. Check orthostatics. For now we will decrease the pain medications. Stop IV Dilaudid. Change oxycodone IR to 5 mg every 8 hourly. Continue tramadol 50 every 4 hourly as needed. Plan Asthma: No active exacerbation. DuoNebs as needed. Thank you for consulting and involving us in the care of Ms. Lerma. Please call back with any questions. Attestations 2 Medical Necessity Statement*: Requires further hospitalization for management of significant symptomatic postoperative hypotension Diagnoses Encounter for postoperative care Z48.89 S/P total knee arthroplasty Z96.659 Bipolar II disorder F31.81 Prediabetes R73.03 Hypotension I95.9
[2023-06-15] MEDS: atorvastatin 40 mg Tablet 80 MG PO (22:32)
[2023-06-15] MEDS: TRAMadol 50 mg Tablet PO (23:01)
[2023-06-16] VITALS (11 sets, daily range): BP systolic 106–157; BP diastolic 53–78; PULSE 78–102; RESP 15–17; TEMP 36.8–37.2; O2SAT 92–98
[2023-06-16] MEDS: lactated ringers 1,000 ML 100 ML IV ×2 (00:45→13:21)
[2023-06-16] MEDS: ondansetron 2 mg/ML SDV 2 mL 4 MG IVP (03:42)
[2023-06-16] MEDS: TRAMadol 50 mg Tablet PO (03:42)
[2023-06-16] MEDS: BuSPIRONE 10 mg Tablet PO ×2 (09:05→18:04)
[2023-06-16] MEDS: iron polysaccharide complex 150 mg Capsule PO ×2 (09:05→18:03)
[2023-06-16] MEDS: pantoprazole DR 40 mg Tablet PO ×2 (09:05→18:04)
[2023-06-16] MEDS: apixaban 5 mg Tablet 2.5 MG PO ×2 (09:06→18:04)
[2023-06-16] MEDS: docusate sodium 100 mg Capsule PO ×2 (09:06→18:03)
[2023-06-16] MEDS: calcium carb-vit d 600mg/400unit 1 Tablet 1 EACH PO ×2 (09:07→18:03)
[2023-06-16] MEDS: duloxetine 60 mg Capsule 120 MG PO (09:07)
[2023-06-16] MEDS: multivitamin therapeutic Tablet 1 TAB PO (09:07)
[2023-06-16] MEDS: ARIPiprazole 10 mg Tablet 15 MG PO (09:08)
[2023-06-16] MEDS: topiramate 100 mg Tablet 200 MG PO ×2 (09:08→18:04)
[2023-06-16] MEDS: mupirocin oint 22 gm 1 APPLIC NASAL ×2 (09:10→18:06)
[2023-06-16] MEDS: chlorhexidine gluconate 0.12% Btl 473 mL 30 ML MUCOUS MEM ×4 (09:11→21:31)
[2023-06-16 11:16] LABS: Basophils % 0.3 %; Eosinophils # 0.1 10^3/uL (0.0-0.8); Eosinophils % 0.9 %; Hematocrit 40.6 % (36-47); Lymphocytes % 12.9 %; Mean Corpuscular HGB Conc 32.8 g/dL (30-55); Mean Corpuscular Hemoglobin 32.9 pg (27-33); Mean Corpuscular Volume 100.5 fl (85-98); Mean Platelet Volume 8.2 fL (7.4-10.4); Monocytes # 0.7 10^3/uL (0.2-0.9); Monocytes % 8.8 %; Neutrophils # 6.09 10^3/uL (1.8-7.7); Neutrophils % 76.7 %; Nucleated Red Blood Cells % 0 %; Platelet Count 182 10^3/cmm (157-399); Red Blood Count 4.04 10^6/uL (3.85-5.65); Red Cell Distribution Width 12.4 % (12.1-15.1); White Blood Count 7.93 10^3/uL (3.29-11.43)
[2023-06-16 11:32] LABS: Alanine Aminotransferase 8 U/L (0-33); Albumin Level 3.5 g/dL (3.5-5.2); Alkaline Phosphatase 45 U/L (35-105); Anion Gap 13.4 (5-19); Aspartate Amino Transferase 33 U/L (0-32); Blood Urea Nitrogen 7 mg/dL (8-23); Calcium 8.8 mg/dL (8.5-10.5); Carbon Dioxide 23 mmol/L (22-29); Chloride 105 mmol/L (98-107); Creatinine Clr Calc Pharmacy 61.1544; Globulin 2.1 g/dL (1.3-4.6); Glucose 174 mg/dL (65-115); Osmolality Calculated 288 mOsm/kg (285-295); Potassium 3.4 mmol/L (3.5-5.1); Sodium 138 mmol/L (136-145); Total Bilirubin 0.4 mg/dL (0.15-1.2); Total Protein 5.6 g/dL (6.6-8.7)
[2023-06-16 11:51] LABS: Magnesium 1.7 mg/dL (1.7-2.3)
[2023-06-16] MEDS: oxyCODONE 5 mg IR Tab/Cap PO (12:05)
--- NOTE | 2023-06-16 15:06 | P.PN_ITS ---
Subjective 2 Subjective: No acute events overnight. Chart reviewed. Care discussed in detail with nurse multiple times. Also discussed with primary team and physical therapy. It seems patient's blood pressures are better but she continues to be orthostatic and mildly symptomatic. Blood work appreciated for a stable hemoglobin. Vitals/I&O/Wt Last Vital Signs Temp 98.9 F 06/15/23 21:30 Pulse 102 H 06/16/23 09:36 Resp 15 06/16/23 12:05 BP 112/70 06/16/23 09:36 Pulse Ox 98 06/16/23 09:36 O2 Del Method Room Air 06/16/23 09:36 06/16/23 06/16/23 06/16/23 06:59 14:59 22:59 Intake Total 1646.667 / 4556.667 1000 / 1000 Output Total 800 / 1450 Balance 846.667 / 3106.667 1000 / 1000 Physical Exam 2 Narrative: General: No acute distress, AO x3 HEENT: PERRLA, pupils bilaterally equal and reactive Chest: Normal vesicular breath sounds, no added sounds, equal good air entry bilaterally CVS: S1-S2 regular, no murmurs, no tachycardia, no gallops, no rubs Abdomen: Soft, nontender, no organomegaly, bowel sounds present Neuro: No focal deficits, no facial deformity, AO x3, power 5/5 in all limbs Extremity: Postoperative bandage present without soakage Urinary Catheter Management: Olivera: Cath Placed During This Visit: yes, but has since been removed by the nurse Reason for Continuing Indwelling Catheter: Decision to DC Catheter Urinary Catheter Date of Insertion: 06/14/23 Urinary Catheter Time of Insertion: 11: Date Urinary Catheter Removed: 06/15/23 Time Urinary Catheter Discontinued: 08:30 Data 06/16/23 11:03 06/16/23 11:03 A&P Assessment and plan (1) Encounter for postoperative care: Monitor hemoglobin. Post left knee arthroplasty. PT/pain medication, anticoagulation, perioperative antibiotics as per primary team. Diet to be advanced as per primary team. (2) S/P total knee arthroplasty: (3) Bipolar II disorder: Restart home medications. (4) Prediabetes: Appreciate A1c. Insulin sliding scale low-dose protocol. (5) Hypotension: Postoperative. Most likely in setting of blood loss. No active signs of infection. Patient has no leukocytosis, no fever. Patient is not on antihypertensives at home. Continue with IV fluids at 125 cc/h. 500 cc IV bolus. Repeat H&H. Transfuse if patient remains hemodynamically unstable or if hemoglobin below 8. Check orthostatics. For now we will decrease the pain medications. Stop IV Dilaudid. Change oxycodone IR to 5 mg every 8 hourly. Continue tramadol 50 every 4 hourly as needed. Plan Asthma: No active exacerbation. DuoNebs as needed. Plan for today: Continues to remain mildly orthostatic most likely in setting of postoperative status. Blood pressures so far have improved. Continue with IV fluids. Orthostatic check every shift. No active signs of infection. If patient remains orthostatic tomorrow we will plan to add midodrine. Though the patient or more blood pressure and output to have normalized by tomorrow. Care discussed in detail with patient's primary team, nursing. Thank you for consulting and involving us in the care of Ms. Lerma. Please call back with any questions. Attestations 2 Medical Necessity Statement*: As per primary team. Diagnoses Encounter for postoperative care Z48.89 S/P total knee arthroplasty Z96.659 Bipolar II disorder F31.81 Prediabetes R73.03 Hypotension I95.9
[2023-06-16] MEDS: ketorolac 30 mg/mL INJ 15 MG IVP (15:11)
--- NOTE | 2023-06-16 16:00 | P.PN_ITS ---
Subjective 2 Subjective: Patient had some improvements in BP with orthostatics however still continues to have some persistent drops in blood pressure when getting up at this point in time discussed with internal medicine recommend continued supportive treatment and additional observation with another night stay. Patient will continue to work with therapy as she can tolerate given her blood pressures. Vitals/I&O/Wt Last Vital Signs Temp 97.4 F L 06/17/23 13:43 Pulse 85 06/17/23 13:43 Resp 16 06/17/23 13:43 BP 131/71 06/17/23 13:43 Pulse Ox 97 06/17/23 13:43 O2 Del Method Room Air 06/17/23 13:43 Physical Exam 2 Narrative: Left knee examination dressings are in place clean dry intact compartments soft compressible calf soft and nontender patient is able to wiggle toes plantarflex and dorsiflex ankle sensations intact to light touch distally. Distal pulses palpable Const: COMMON NORMALS: no acute distress, healthy appearing and alert HENMT: COMMON NORMALS: normocephalic and atraumatic HEAD & SCALP: n ormocephalic and atraumatic Resp: COMMON NORMALS: normal respiratory effort and No retractions Cardio: COMMON NORMALS: Peripheral pulses 2+ throughout PERIPHERAL PULSES: Peripheral pulses 2+ throughout Neuro: SENSORIUM/ORIENTATION: Yes alert Urinary Catheter Management: Olivera: Cath Placed During This Visit: yes, but has since been removed by the nurse Reason for Continuing Indwelling Catheter: Decision to DC Catheter Urinary Catheter Date of Insertion: 06/14/23 Urinary Catheter Time of Insertion: 11:30 Date Urinary Catheter Removed: 06/15/23 Time Urinary Catheter Discontinued: 08:30 Data 06/17/23 07:09 06/17/23 07:09 A&P Assessment and plan (1) S/P total knee arthroplasty: Plan PT/OT Weight-bear as tolerated operative extremity DVT prophylaxis Pain control Resume diet Reviewed labs, reviewed imaging Internal medicine on board appreciate assistance Ice and elevate as needed Patient will require additional hospitalization given she is still having orthostatic hypotension and dizziness. Attestations 2 Medical Necessity Statement*: Continued hospitalization secondary to orthostatic hypotension postoperative from right total knee arthroplasty as well as persistent headaches and dizziness. Coding Level of Care Code Acute Code for Chg Fwd Diagnoses S/P total knee arthroplasty Z96.659 Time Spent (min) 15
[2023-06-16] MEDS: atorvastatin 40 mg Tablet 80 MG PO (21:30)
[2023-06-17] MEDS: TRAMadol 50 mg Tablet PO (01:43)
[2023-06-17 04:45] VITALS: BP 144/71; PULSE 89; RESP 16; TEMP 36.8; O2SAT 97
[2023-06-17 07:19] LABS: Basophils % 0.3 %; Eosinophils # 0.2 10^3/uL (0.0-0.8); Eosinophils % 2.2 %; Hematocrit 39.9 % (36-47); Lymphocytes # 1.1 10^3/uL (0.8-4.8); Lymphocytes % 16.4 %; Mean Corpuscular HGB Conc 32.3 g/dL (30-55); Mean Corpuscular Hemoglobin 32.7 pg (27-33); Mean Corpuscular Volume 101.3 fl (85-98); Mean Platelet Volume 8.1 fL (7.4-10.4); Monocytes # 0.6 10^3/uL (0.2-0.9); Monocytes % 8.4 %; Neutrophils # 4.97 10^3/uL (1.8-7.7); Neutrophils % 72.3 %; Nucleated Red Blood Cells % 0 %; Platelet Count 174 10^3/cmm (157-399); Red Blood Count 3.94 10^6/uL (3.85-5.65); Red Cell Distribution Width 12.3 % (12.1-15.1); White Blood Count 6.88 10^3/uL (3.29-11.43)
[2023-06-17 07:33] LABS: Alanine Aminotransferase 10 U/L (0-33); Albumin Level 3.4 g/dL (3.5-5.2); Alkaline Phosphatase 39 U/L (35-105); Anion Gap 12.4 (5-19); Aspartate Amino Transferase 28 U/L (0-32); Blood Urea Nitrogen 9 mg/dL (8-23); Calcium 8.7 mg/dL (8.5-10.5); Carbon Dioxide 22 mmol/L (22-29); Chloride 109 mmol/L (98-107); Creatinine Clr Calc Pharmacy 61.1544; Globulin 2.2 g/dL (1.3-4.6); Glucose 118 mg/dL (65-115); Osmolality Calculated 290 mOsm/kg (285-295); Potassium 3.4 mmol/L (3.5-5.1); Sodium 140 mmol/L (136-145); Total Bilirubin 0.6 mg/dL (0.15-1.2); Total Protein 5.6 g/dL (6.6-8.7)
[2023-06-17 07:40] LABS: Magnesium 1.8 mg/dL (1.7-2.3)
[2023-06-17 08:35] VITALS: RESP 16
[2023-06-17] MEDS: mupirocin oint 22 gm 1 APPLIC NASAL (08:35)
[2023-06-17] MEDS: oxyCODONE 5 mg IR Tab/Cap PO (08:35)
[2023-06-17] MEDS: ARIPiprazole 10 mg Tablet 15 MG PO (08:36)
[2023-06-17] MEDS: chlorhexidine gluconate 0.12% Btl 473 mL 30 ML MUCOUS MEM (08:36)
[2023-06-17] MEDS: calcium carb-vit d 600mg/400unit 1 Tablet 1 EACH PO (08:37)
[2023-06-17] MEDS: apixaban 5 mg Tablet 2.5 MG PO (08:37)
[2023-06-17] MEDS: iron polysaccharide complex 150 mg Capsule PO (08:37)
[2023-06-17] MEDS: BuSPIRONE 10 mg Tablet PO (08:38)
[2023-06-17] MEDS: topiramate 100 mg Tablet 200 MG PO (08:38)
[2023-06-17] MEDS: duloxetine 60 mg Capsule 120 MG PO (08:39)
[2023-06-17] MEDS: docusate sodium 100 mg Capsule PO (08:39)
[2023-06-17 09:07] VITALS: BP 136/82; BP 150/82; BP 160/80; PULSE 103; PULSE 98
--- NOTE | 2023-06-17 10:21 | P.PN_ITS ---
Subjective 2 Subjective: No acute events overnight. Patient has remained hemodynamically stable and afebrile. Patient's blood pressures are better and she does not have any further dizziness on walking around. Orthostatic blood pressures were checked earlier today morning and they were found to be negative. Blood work appreciated. Vitals/I&O/Wt Last Vital Signs Temp 98.3 F 06/17/23 04:45 Pulse 89 06/17/23 04:45 Resp 16 06/17/23 08:35 BP 144/71 06/17/23 04:45 Pulse Ox 97 06/17/23 04:45 O2 Del Method Room Air 06/17/23 04:45 06/16/23 06/17/23 06/17/23 22:59 06:59 14:59 Intake Total 800 / 1800 400 / 2200 Balance 800 / 1300 400 / 1700 Physical Exam 2 Narrative: General: No acute distress, AO x3 HEENT: PERRLA, pupils bilaterally equal and reactive Chest: Normal vesicular breath sounds, no added sounds, equal good air entry bilaterally CVS: S1-S2 regular, no murmurs, no tachycardia, no gallops, no rubs Abdomen: Soft, nontender, no organomegaly, bowel sounds present Neuro: No focal deficits, no facial deformity, AO x3, power 5/5 in all limbs Extremity: Postoperative bandage present without soakage Urinary Catheter Management: Olivera: Cath Placed During This Visit: yes, but has since been removed by the nurse Reason for Continuing Indwelling Catheter: Decision to DC Catheter Urinary Catheter Date of Insertion: 06/14/23 Urinary Catheter Time of Insertion: 11: Date Urinary Catheter Removed: 06/15/23 Time Urinary Catheter Discontinued: 08:30 Data 06/17/23 07:09 06/17/23 07:09 A&P Assessment and plan (1) Encounter for postoperative care: Monitor hemoglobin. Post left knee arthroplasty. PT/pain medication, anticoagulation, perioperative antibiotics as per primary team. Diet to be advanced as per primary team. (2) S/P total knee arthroplasty: (3) Bipolar II disorder: Restart home medications. (4) Prediabetes: Appreciate A1c. Insulin sliding scale low-dose protocol. (5) Hypotension: Postoperative. Most likely in setting of blood loss. No active signs of infection. Patient has no leukocytosis, no fever. Patient is not on antihypertensives at home. Continue with IV fluids at 125 cc/h. 500 cc IV bolus. Repeat H&H. Transfuse if patient remains hemodynamically unstable or if hemoglobin below 8. Check orthostatics. For now we will decrease the pain medications. Stop IV Dilaudid. Change oxycodone IR to 5 mg every 8 hourly. Continue tramadol 50 every 4 hourly as needed. Plan Asthma: No active exacerbation. DuoNebs as needed. Plan for today: Patient not orthostatic positive anymore. Can be discharged from medical standpoint. Patient advised in detail about good fluid intake up to 2 to 3 L. She should follow-up with her primary care provider within next 1 week. She should continue taking Eliquis 2.5 mg twice daily for DVT/VTE prevention. She should check her blood pressures daily at home and maintain a blood pressure diary. Thank you for consulting and involving us in the care of Ms. Lerma. Please call back with any questions. Attestations 2 Medical Necessity Statement*: As per primary team. Patient does okay to be discharged from medical standpoint. Diagnoses Encounter for postoperative care Z48.89 S/P total knee arthroplasty Z96.659 Bipolar II disorder F31.81 Prediabetes R73.03 Hypotension I95.9
[2023-06-17] MEDS: potassium chloride ER 20 mEq Tablet 40 MEQ PO (11:04)
[2023-06-17] MEDS: ketorolac 30 mg/mL INJ 15 MG IVP (11:16)
--- NOTE | 2023-06-17 12:26 | P.PN_ITS ---
Subjective 2 Subjective: Patient seen and examined today. She is finally recovering well and blood pressure stable and cleared by internal medicine for discharge. Patient stable for discharge from orthopedic standpoint she understands her postoperative recovery course and instructions and should follow-up with us in the office in 2 weeks. Vitals/I&O/Wt Last Vital Signs Temp 98.3 F 06/17/23 04:45 Pulse 103 H 06/17/23 09:07 Resp 16 06/17/23 08:35 BP 136/82 06/17/23 09:07 Pulse Ox 97 06/17/23 04:45 O2 Del Method Room Air 06/17/23 04:45 06/16/23 06/17/23 06/17/23 22:59 06:59 14:59 Intake Total 800 / 1800 400 / 2200 Balance 800 / 1300 400 / 1700 Physical Exam 2 Narrative: Left knee examination dressings are in place clean dry intact compartments soft compressible calf soft and nontender patient is able to wiggle toes plantarflex and dorsiflex ankle sensations intact to light touch distally. Distal pulses palpable Const: COMMON NORMALS: no acute distress, healthy appearing and alert HENMT: COMMON NORMALS: normocephalic and atraumatic HEAD & SCALP: n ormocephalic and atraumatic Resp: COMMON NORMALS: normal respiratory effort and No retractions Cardio: COMMON NORMALS: Peripheral pulses 2+ throughout PERIPHERAL PULSES: Peripheral pulses 2+ throughout Neuro: SENSORIUM/ORIENTATION: Yes alert Urinary Catheter Management: Olivera: Cath Placed During This Visit: yes, but has since been removed by the nurse Reason for Continuing Indwelling Catheter: Decision to DC Catheter Urinary Catheter Date of Insertion: 06/14/23 Urinary Catheter Time of Insertion: : Date Urinary Catheter Removed: 06/15/23 Time Urinary Catheter Discontinued: 08:30 Data 06/17/23 07:09 06/17/23 07:09 A&P Assessment and plan (1) S/P total knee arthroplasty: Plan PT/OT Weight-bear as tolerated operative extremity DVT prophylaxis Pain control Resume diet Reviewed labs, reviewed imaging Internal medicine on board appreciate assistance Ice and elevate as needed Stable for discharge from orthopedic standpoint as well as internal medicine standpoint resolution of orthostatic hypotension given appropriate discharge structure as well as pain medication and DVT prophylaxis she will follow-up with us in the office in the next 2 weeks. All questions answered.. Attestations 2 Medical Necessity Statement*: Ongoing care left total knee arthroplasty Coding Level of Care Code Acute Code for Chg Fwd Diagnoses S/P total knee arthroplasty Z96.659 Time Spent (min) 20
[2023-06-17 13:43] VITALS: BP 131/71; PULSE 85; RESP 16; TEMP 36.3; O2SAT 97
--- NOTE | 2023-06-17 14:00 | P.DS_ITS ---
Discharge Providers Date of Admission: 06/14/23 15:05 Date of Discharge: June 17, 2023 Attending Provider at Admission: Baudilio Arredondo DO Attending Provider at Discharge: Baudilio Arredondo DO Consults: Dr. Lucero?hospitalist Primary Care Provider: Bart Ronquillo DO Diagnoses at Discharge Discharge Diagnosis (1) S/P total knee arthroplasty: Status: Acute Reason for Visit Reason for Visit: M17.12 Brief History: Status post left total knee arthroplasty Hospital Course Hospital Course patient presented to the preoperative holding area with plan for [left] total knee arthroplasty after patient has been worked up in the outpatient setting for failed conservative treatment of [left] knee degenerative joint disease. Once cleared by anesthesia for surgery patient subsequently was taken back to the operative suite underwent anesthesia per anesthesia department and then subsequently underwent a [left] total knee arthroplasty. Procedure was performed without any complications patient was taken to PACU in stable condition patient recovered well in PACU and then was admitted to the floor postoperatively internal medicine was consulted and on board for medical management and assistance with care. Patient received appropriate PT/OT, postoperative antibiotics, postoperative TXA, pain control, postoperative DVT pr ophylaxis. Elevation and ice. Patient encouraged for knee range of motion allowed weightbearing as tolerated to the operative lower extremity. Dressing was changed as needed, labs were monitored daily. Patient recovered well postoperatively and worked well and progressed well with therapy. [Patient had bouts postoperatively of continued orthostatic hypotension and this was supported and managed by her internal medicine team with fluids and continued monitoring. This patient required 2 more additional night stays till this was controlled]. It was determined on postoperative day [3 ] the patient was stable for discharge from an orthopedic standpoint and medicine. Patient was comfortable with discharge and plan was discharged home. Patient received appropriate discharge instructions as well as pain medication and DVT prophylaxis postoperatively. Given appropriate instructions for dressing management. Patient will follow-up with Dr. Arredondo/orthopedics in the office in 2 weeks. All questions answered. Understand if there is any issues questions or concerns and contact the office. Physical Exam Narrative: Left knee examination dressings are in place clean dry intact compartments soft compressible calf soft and nontender patient is able to wiggle toes plantarflex and dorsiflex ankle sensations intact to light touch distally. Distal pulses palpable Const: COMMON NORMALS: no acute distress, healthy appearing and alert HENMT: COMMON NORMALS: normocephalic and atraumatic HEAD & SCALP: normocephalic and atraumatic Resp: COMMON NORMALS: normal respiratory effort and No retractions Cardio: COMMON NORMALS: Peripheral pulses 2+ throughout PERIPHERAL PULSES: Peripheral pulses 2+ throughout Neuro: SENSORIUM/ORIENTATION: Yes alert Urinary Catheter Management: Olivera: Cath Placed During This Visit: yes, but has since been removed by the nurse Reason for Continuing Indwelling Catheter: Decision to DC Catheter Urinary Catheter Date of Insertion: 06/14/23 Urinary Catheter Time of Insertion: : Date Urinary Catheter Removed: 06/15/23 Time Urinary Catheter Discontinued: 08:30 Discharge Data Studies Completed and Pending Completed Studies During Hospitalization Category Date Time Status XR knee LT 1-2V [id number] Routine Exams 06/14/23 13:56 Completed Radiology Impressions Knee X-Ray 06/14/23 13:56 IMPRESSION: Normal following replacement. Laboratory Results WBC 6.88 10^3/uL (3.29-11.43) 06/17/23 07:09 RBC 3.94 10^6/uL (3.85-5.65) 06/17/23 07:09 Hgb 12.90 g/dL (11.27-16.99) 06/17/23 07:09 Hct 39.9 % (36-47) 06/17/23 07:09 MCV 101.3 fl (85-98) H 06/17/23 07:09 MCH 32.7 pg (27-33) 06/17/23 07:09 MCHC 32.3 g/dL (30-55) 06/17/23 07:09 RDW 12.3 % (12.1-15.1) 06/17/23 07:09 Plt Count 174 10^3/cmm (157-399) 06/17/23 07:09 MPV 8.1 fL (7.4-10.4) 06/17/23 07:09 Neut % (Auto) 72.3 % 06/17/23 07:09 Lymph % (Auto) 16.4 % 06/17/23 07:09 [place] % (Auto) 8.4 % 06/17/23 07:09 Eos % (Auto) 2.2 % 06/17/23 07:09 Baso % (Auto) 0.3 % 06/17/23 07:09 Neut # (Auto) 4.97 10^3/uL (1.8-7.7) 06/17/23 07:09 Lymph # (Auto) 1.1 10^3/uL (0.8-4.8) 06/17/23 07:09 [place] # (Auto) 0.6 10^3/uL (0.2-0.9) 06/17/23 07:09 Eos # (Auto) 0.2 10^3/uL (0.0-0.8) 06/17/23 07:09 Baso # (Auto) 0.0 10^3/uL (0.0-0.1) 06/17/23 07:09 Nucleated RBC % (auto) 0 % 06/17/23 07:09 Nucleated RBCs # 0.0 /100WBC 06/17/23 07:09 Sodium 140 mmol/L (136-145) 06/17/23 07:09 Potassium 3.4 mmol/L (3.5-5.1) L 06/17/23 07:09 Chloride 109 mmol/L (98-107) H 06/17/23 07:09 Carbon Dioxide 22 mmol/L (22-29) 06/17/23 07:09 Anion Gap 12.4 (5-19) 06/17/23 07:09 BUN 9 mg/dL (8-23) 06/17/23 07:09 Creatinine 0.7 mg/dL (0.5-0.9) 06/17/23 07:09 GFR Calculation Not Reportable 06/17/23 07:09 Glucose 118 mg/dL (65-115) H 06/17/23 07:09 POC Glucose 92 mg/dL (70-110) 06/14/23 08:08 Calculated Osmolality 290 mOsm/kg (285-295) 06/17/23 07:09 Calcium 8.7 mg/dL (8.5-10.5) 06/17/23 07:09 Magnesium 1.8 mg/dL (1.7-2.3) 06/17/23 07:09 Iron 49 ug/dL (37-145) 06/14/23 08:35 TIBC 214 mcg/dl 06/14/23 08:35 % Saturation 22.8 % (20-50) 06/14/23 08:35 Unsat Iron Binding 165 ug/dL (112-347) 06/14/23 08:35 Total Bilirubin 0.6 mg/dL (0.15-1.2) 06/17/23 07:09 AST 28 U/L (0-32) 06/17/23 07:09 ALT 10 U/L (0-33) 06/17/23 07:09 Alkaline Phosphatase 39 U/L (35-105) 06/17/23 07:09 Total Protein 5.6 g/dL (6.6-8.7) L 06/17/23 07:09 Albumin 3.4 g/dL (3.5-5.2) L 06/17/23 07:09 Globulin 2.2 g/dL (1.3-4.6) 06/17/23 07:09 Vitamin B12 704 pg/mL (232-1245) 06/14/23 08:35 Folate > 20.0 ng/mL (4.8-37.3) 06/15/23 05:20 Blood Type O Positive 06/14/23 08:10 Rho(D) Type Rh positive 06/14/23 08:10 Antibody Screen Negative 06/14/23 08:10 Vitals Last Vital Signs Temp 97.4 F L 06/17/23 13:43 Pulse 85 06/17/23 13:43 Resp 16 06/17/23 13:43 BP 131/71 06/17/23 13:43 Pulse Ox 97 06/17/23 13:43 O2 Del Method Room Air 06/17/23 13:43 Discharge Plan Discharge Patient Disposition: Home Condition: Stable Prescriptions: New Eliquis 2.5 mg tablet 2.5 mg PO BID 14 Days Qty: 28 0RF oxycodone 5 mg tablet 5 mg PO Q6H PRN (Reason: pain postop) 7 Days Qty: 28 0RF Continued levocetirizine [Xyzal] 5 mg tablet 2.5 mg PO DAILY PRN (Reason: allergies) fluticasone propionate 50 mcg/actuation spray,suspension 1 spray intranasal DAILY PRN (Reason: allergies) Rx Instructions: administer into each nostril (DME) hinged knee brace See Rx Instructions .Route .MEDSUPPLY Qty: 1 0RF Rx Instructions: As directed rizatriptan 10 mg tablet 10 mg PO DIRECTED PRN (Reason: Migraine Headache) Rx Instructions: take 1 tab at onset of headache; if no relief may repeat 1 tab after at least 2 hrs; max = 3 tabs/24 hr PO atorvastatin 80 mg tablet 80 mg PO DAILY meclizine 25 mg tablet 25 mg PO DAILY PRN (Reason: Dizziness) Rx Instructions: 1 tab every six hours metformin 500 mg tablet 500 mg PO DAILY Qty: 90 3RF duloxetine 60 mg capsule,delayed release(DR/EC) 120 mg PO DAILY Qty: 60 2RF clomipramine 50 mg capsule 100 mg PO DAILY Qty: 60 2RF buspirone 10 mg tablet 10 mg PO BID Qty: 60 2RF albuterol sulfate 90 mcg/actuation HFA aerosol inhaler 2 puff inhalation Q4H PRN (Reason: shortness of breath or wheezing) Qty: 8.5 0RF aripiprazole [Abilify] 15 mg tablet 15 mg PO DAILY Qty: 30 2RF omeprazole 40 mg capsule,delayed release(DR/EC) 40 mg PO BID Qty: 180 3RF topiramate 200 mg tablet 200 mg PO BID Rx Instructions: TAKE 1 TABLET BY MOUTH TWICE DAILY Discontinued ibuprofen 800 mg tablet 800 mg PO Q8H PRN (Reason: pain) Qty: 20 0RF Discharge Orders: Discharge Order (Routine); Ordered 06/17/23 Ordered By: Baudilio Arredondo [facility]: [facility] [Outside] Baudilio Arredondo DO [Physician] - 06/29/23 1:00 pm (FOLLOW UP APPOINTMENT June AT 9AM.) Discharge Diet: Advance as tolerated Discharge Activity: Increase activity as tolerated and Limit activity as instructed Patient Instructions: Oxycodone/Acetaminophen (By mouth), Ondansetron (By mouth) (Zofran, Zofran ODT, Zuplenz), Precautions after Total Joint Replacement Surgery (GEN), Joint Replacement Surgery (GEN), Total Knee Replacement (GEN), Blood Thinners (GEN), OB Discharge Report, Opioid Safety Activity Restrictions/Additional Instructions: ORTHO DC Instructions Keep incisions clean dry and intact, leave Silverlon bandage dressings on in place for 7 days after that may rinse incisions with warm soapy water pat dry and redress with a dry dressing. Patient may weight-bear as tolerate to the operative extremity Utilize crutches as needed Encourage knee range of motion PT to work on knee ROM. Ice and elevate as needed for pain and swelling Take pain medication as prescribed Take antinausea medication as needed The prescribed Eliquis twice daily for the next 14 days for blood clot prevention May supplement for pain with Tylenol [id number] as needed No baths or soaks Follow-up in the orthopedic office in 2 weeks Contact the office for any questions or concerns Please follow-up with a primary care provider within next 1 week. Continue taking all your other medications as before. Do not take ibuprofen anymore. Eliquis is a blood thinner which she should take twice daily for next 2 weeks. Please consume up to 2 to 3 L of fluid daily. Please maintain a blood pressure diary by checking blood pressures daily at home and follow-up with a primary provider within next 1 week with the blood pressure diary. Discharge Attestations Time Spent in Discharge Care*: less than 30 min Quality Metrics Clinical Quality Measures [ No reported AMI, CVA or VTE this stay] Coding Level of Care Code Acute Code for Chg Fwd Diagnoses S/P total knee arthroplasty Z96.659 Time Spent (min) 25
== END 2023-06-17 14:00 | disposition home or self-care (01) ==
LOC: OBGYN 15:06
PROVIDERS: Student in an Organized Health Care Education/Training Program; Admitting Provider Student in an Organized Health Care Education/Training Program; PCP Family Medicine; Visit Provider Student in an Organized Health Care Education/Training Program
PROC: 8E0Y0CZ Robotic Assisted Procedure of Lower Extremity, Open Approach (ICD-10-PCS; CPT 27447; principal; 2023-06-14 08:55)
DX: M17.12 Unilateral primary osteoarthritis, left knee (principal); F31.81 Bipolar II disorder; R73.03 Prediabetes; I95.9 Hypotension, unspecified; J45.909 Unspecified asthma, uncomplicated; Z79.84 Long term (current) use of oral hypoglycemic drugs; N18.9 Chronic kidney disease, unspecified; K21.9 Gastro-esophageal reflux disease without esophagitis; E11.9 Type 2 diabetes mellitus without complications; E78.5 Hyperlipidemia, unspecified
CPT/HCPCS: 20985; 27447; 36415; 36416; 51702; 73560; 80048; 80053; 82607; 82746; 82962; 83540; 83550; 83735; 85014; 85018; 85025; 86850; 86900; 97110; 97116; 97161; 97165; 97530; 97535; C1776; G0378; J0131; J0171; J0280; J0690; J1100; J1200; J1885; J2405; J2704; J2795; J3370; J7030; J7050; J7120

== ENCOUNTER → 2023-06-29 08:53 | Outpatient (BNVA) | payer MEDICARE, SELFPAY | PROVIDERS: PCP Family Medicine; Visit Provider Physician Assistant | DX: Z96.652 Presence of left artificial knee joint | CPT/HCPCS: 73560; 73565; 99024 ==

== ENCOUNTER 2023-07-13 10:23 | Outpatient (RCR) | payer MEDICARE, SELFPAY | END 2023-07-18 23:59 | disposition home or self-care (01) | LOC: SPT 10:23 | PROVIDERS: PCP Family Medicine; Visit Provider Student in an Organized Health Care Education/Training Program | DX: Z47.1 Aftercare following joint replacement surgery (principal); Z96.652 Presence of left artificial knee joint | CPT/HCPCS: 97110; 97140; 97161 ==

== ENCOUNTER 2023-07-21 08:00 | Outpatient (RCR) | payer MEDICARE, SELFPAY | END 2023-08-18 23:59 | disposition home or self-care (01) | LOC: SPT 08:00 | PROVIDERS: PCP Family Medicine; Visit Provider Student in an Organized Health Care Education/Training Program | DX: Z47.1 Aftercare following joint replacement surgery (principal); Z96.652 Presence of left artificial knee joint | CPT/HCPCS: 97110; 97140; G0283 ==

== ENCOUNTER 2023-08-19 06:00 | Outpatient (RCR) | payer MEDICARE, SELFPAY | END 2023-09-16 23:59 | disposition home or self-care (01) | LOC: SPT 06:00 | PROVIDERS: PCP Family Medicine; Visit Provider Student in an Organized Health Care Education/Training Program | DX: Z47.1 Aftercare following joint replacement surgery (principal); Z96.652 Presence of left artificial knee joint | CPT/HCPCS: 97110 ==

== ENCOUNTER → 2023-08-26 08:30 | Outpatient (BNVA) | payer MEDICARE, SELFPAY | PROVIDERS: PCP Family Medicine; Visit Provider Physician Assistant | DX: Z96.652 Presence of left artificial knee joint (principal) | CPT/HCPCS: 73560; 73565; 99024; 99213 ==

== ENCOUNTER → 2023-09-23 14:09 | Outpatient (BNVA) | payer OTHER, SELFPAY | PROVIDERS: PCP Family Medicine; Referring Provider Optometrist; Visit Provider Specialist | DX: H53.9 Unspecified visual disturbance (principal); G43.711 Chronic migraine without aura, intractable, with status migrainosus | CPT/HCPCS: 99205 ==

== ENCOUNTER → 2023-10-14 15:10 | Outpatient (BNVA) | payer OTHER, SELFPAY | PROVIDERS: PCP Family Medicine; Visit Provider Family Medicine | DX: N39.0 Urinary tract infection, site not specified (principal); R35.0 Frequency of micturition; E87.6 Hypokalemia; E11.9 Type 2 diabetes mellitus without complications | CPT/HCPCS: 80048; 80061; 81000; 81003; 83036; 84443 ==

== ENCOUNTER 2023-10-25 10:30 | Outpatient (CLI) | payer OTHER, SELFPAY ==
--- NOTE | 2023-10-25 11:00 | MR_ITS ---
WS: [id number] MRI HEAD WITHOUT CONTRAST TECHNIQUE: Sagittal T1, T2 axial, T2 axial FLAIR, axial and coronal T1 images, axial susceptibility w eighted imaging, axial diffusion weighted images, and coronal T2 images were obtained. CLINICAL INFORMATION: G43.711 - Chronic migraine without aura, intractable, wit... COMPARISON: None. FINDINGS: No evidence of restricted diffusion to suggest acute ischemia. Ventricular system and basal cisterns are patent. Mild small vessel changes. Mild parenchymal volume loss. Normal posterior fossa. Normal v ascular flow voids at the skull base. No extra-axial fluid collections. No evidence of mass or mass e ffect. Paranasal sinuses and mastoid air cells are well aerated. Normal posterior nasopharynx. No hem osiderin on the susceptibly weighted images. Normal optic chiasm and pituitary infundibulum. Temporal lobes and hippocampal formations are normal in appearance. No other suspicious findings. IMPRESSION: 1. No evidence of restricted diffusion to suggest acute ischemia. 2. Mild small vessel changes. Mild parenchymal volume loss. 3. No hemosiderin on the susceptibly weighted images. 4. Temporal lobes and hippocampal formations are normal in appearance. 5. No other suspicious findings.
== END 2023-10-25 10:31 | disposition home or self-care (01) ==
LOC: RAD 10:31
PROVIDERS: PCP Family Medicine; Visit Provider Specialist
DX: G43.711 Chronic migraine without aura, intractable, with status migrainosus (principal)
CPT/HCPCS: 70551; 81000

== ENCOUNTER 2023-11-01 09:59 | Outpatient (CLI) | payer OTHER, SELFPAY ==
[2023-11-01 11:55] LABS: Sodium, Urine Result 34 mmol/L; Urine Creatinine 43 mg/dL (28-217); Urine Potassium 24 Hour 25 mmol/24H (25-125)
[2023-11-01 11:58] LABS: Microalbumin Result 1.2 mg/dL; Total Volume Urine 4200 ml; Total Volume, Urine 4200 mL
[2023-11-01 11:59] LABS: Potassium, Urine Result 105 mmol/L
[2023-11-01 12:02] LABS: Total Volume 4200 mL
[2023-11-01 12:13] LABS: Microalbumin 24 Hour Result 50 mg/24HR (0-30); Microalbumin Total Volume 4200 mL
== END 2023-11-01 10:00 | disposition home or self-care (01) ==
LOC: LAB 10:00
PROVIDERS: PCP Family Medicine; Visit Provider Family Medicine
DX: R35.0 Frequency of micturition (principal); R63.1 Polydipsia
CPT/HCPCS: 82043; 82570; 84133; 84300; 84540

== ENCOUNTER → 2023-11-16 09:31 | Outpatient (BNVA) | payer OTHER, SELFPAY | PROVIDERS: PCP Family Medicine; Visit Provider Specialist | DX: R29.90 Unspecified symptoms and signs involving the nervous system; M46.1 Sacroiliitis, not elsewhere classified; H53.9 Unspecified visual disturbance; M53.3 Sacrococcygeal disorders, not elsewhere classified; G62.9 Polyneuropathy, unspecified | CPT/HCPCS: 99214; J1010; J3490 ==

== ENCOUNTER 2023-11-23 09:11 | Outpatient (CLI) | payer OTHER, SELFPAY ==
[2023-11-23 10:07] LABS: Vitamin B12 673 pg/mL (232-1245)
[2023-11-23 10:29] LABS: Folate Level > 20.0 ng/mL (4.8-37.3)
== END 2023-11-23 09:12 | disposition home or self-care (01) ==
PROVIDERS: PCP Family Medicine; Visit Provider Family Medicine
DX: G43.711 Chronic migraine without aura, intractable, with status migrainosus (principal); D75.89 Other specified diseases of blood and blood-forming organs; G62.9 Polyneuropathy, unspecified; Z79.899 Other long term (current) drug therapy
CPT/HCPCS: 82607; 82746

== ENCOUNTER → 2023-12-21 10:23 | Outpatient (BNVA) | payer OTHER, SELFPAY | PROVIDERS: PCP Family Medicine; Visit Provider Physician Assistant | DX: Z96.652 Presence of left artificial knee joint (principal) | CPT/HCPCS: 73560; 73565; 99213 ==

== ENCOUNTER → 2024-01-11 09:58 | Outpatient (BNVA) | payer OTHER, SELFPAY | PROVIDERS: PCP Family Medicine; Visit Provider Nurse Practitioner Family | DX: L21.8 Other seborrheic dermatitis (principal); D48.5 Neoplasm of uncertain behavior of skin; L57.8 Other skin changes due to chronic exposure to nonionizing radiation; L81.4 Other melanin hyperpigmentation; L29.8 Other pruritus | CPT/HCPCS: 99204 ==

== ENCOUNTER → 2024-01-19 08:40 | Outpatient (BNVA) | payer OTHER, SELFPAY | PROVIDERS: PCP Family Medicine; Visit Provider Nurse Practitioner Family | DX: L21.8 Other seborrheic dermatitis (principal); D37.01 Neoplasm of uncertain behavior of lip | CPT/HCPCS: 40490; 99214 ==

== ENCOUNTER 2024-02-24 12:35 | Outpatient (CLI) | payer OTHER, SELFPAY ==
--- NOTE | 2024-02-24 13:00 | MR_ITS ---
WS: [id number] MRI LUMBAR SPINE NONCONTRAST TECHNIQUE: Sagittal T1, T2 and STIR imaging. Axial T1 and T2 imaging. CLINICAL INFORMATION: M54.50 - Low back pain, unspecified COMPARISON: None. FINDINGS: Mild lumbar curve. Endplate Schmorl's nodes inferior plate of T12 and inferior plate of L3. Superimp osed compression fracture inferior endplate of L3 with visualized fracture cleft and associated edema . No retropulsion. This has an acute appearance. Susceptibly artifact at the GE junction from LINX de vice. L1-L2: Spinal canal and foramen are patent. Mild facet arthropathy. L2-L3: Mild annular bulging. Narrowing of the RIGHT subarticular recess. Impingement on traversing RI GHT L3 nerve root. Mild RIGHT greater than LEFT foraminal narrowing. Mild facet arthropathy. L3-L4: Small LEFT foraminal protrusion slightly impinges the exiting LEFT L3 nerve root with mild LEF T foraminal narrowing. Mild RIGHT foraminal narrowing. Annular bulging with slight effacement of the ventral thecal sac. Moderate facet arthropathy. L4-L5: Mild annular bulging. Narrowing of the RIGHT subarticular recess. RIGHT foraminal protrusion w ith moderate RIGHT foraminal narrowing. LEFT foramen is patent. Moderate facet arthropathy. L5-S1: Spinal canal and foramen are patent. Mild facet arthropathy. Visualized pelvic bony structures: Normal. Paravertebral soft tissues: Normal. MR/MR lumbar spine wo con* [id number] IMPRESSION: 1. Mild lumbar curve. No high-grade central canal stenosis. 2. Prominent Schmorl's node inferior endplate L3 with associated edema. Superi mposed acute appearing endplate compression fracture. No retropulsion. No signi ficant loss of vertebral body height. 3. Incidental Schmorl's node inferior endplate T12. 4. Moderate RIGHT L4-5 foraminal narrowing with a small RIGHT foraminal protru aung impinges the exiting RIGHT L4 nerve root. 5. Small LEFT greater than RIGHT foraminal protrusions L3-4 with slight imping ement on the exiting LEFT L3 nerve root. 6. Moderate facet arthropathy L3-L5.
== END 2024-02-24 12:36 | disposition home or self-care (01) ==
LOC: RAD 12:35
PROVIDERS: PCP Family Medicine; Visit Provider Specialist
DX: S32.030A Wedge compression fracture of third lumbar vertebra, initial encounter for closed fracture (principal); M51.46 Schmorl's nodes, lumbar region; M51.44 Schmorl's nodes, thoracic region; M99.63 Osseous and subluxation stenosis of intervertebral foramina of lumbar region; M47.896 Other spondylosis, lumbar region; M46.1 Sacroiliitis, not elsewhere classified
CPT/HCPCS: 72148

== ENCOUNTER → 2024-03-14 15:15 | Outpatient (BNVA) | payer OTHER, SELFPAY | PROVIDERS: PCP Family Medicine; Visit Provider Specialist | DX: M51.16 Intervertebral disc disorders with radiculopathy, lumbar region (principal); G43.711 Chronic migraine without aura, intractable, with status migrainosus; M53.3 Sacrococcygeal disorders, not elsewhere classified; R29.90 Unspecified symptoms and signs involving the nervous system; D75.89 Other specified diseases of blood and blood-forming organs; M46.1 Sacroiliitis, not elsewhere classified; H53.9 Unspecified visual disturbance; M25.59 Pain in other specified joint | CPT/HCPCS: 20552; 99214; J1010; J3490 ==

== ENCOUNTER → 2024-03-21 09:54 | Outpatient (BNVA) | payer OTHER, SELFPAY | PROVIDERS: PCP Family Medicine; Visit Provider Internal Medicine | DX: R73.03 Prediabetes (principal); E07.9 Disorder of thyroid, unspecified; R63.1 Polydipsia; R35.89 Other polyuria; F31.81 Bipolar II disorder; E78.5 Hyperlipidemia, unspecified; R35.0 Frequency of micturition; Z79.84 Long term (current) use of oral hypoglycemic drugs | CPT/HCPCS: 99204 ==

== ENCOUNTER 2024-03-23 12:35 | Outpatient (CLI) | payer OTHER, SELFPAY ==
[2024-03-23 13:06] LABS: Charge for UA Resulting for Rev
[2024-03-23 13:14] LABS: Bilirubin Urine Negative (Negative); Blood Urine Negative (Negative); Glucose Urine UA Negative (Normal); Ketones Urine Negative (Negative); Leukocyte Esterase Urine 1+ (Negative); Nitrate Urine Negative (Negative); Protein Urine Negative (Negative); Specific Gravity, Urine 1.017 (1.005-1.030); Urine Appearance Clear (CLEAR); Urine Color Yellow (Yellow); pH Urine 5.5 (5-7)
[2024-03-23 13:21] LABS: UA Manual Slide Review YES; UA Slide Review UA Slide Review Perf
[2024-03-23 13:23] LABS: Add Urine Culture? No; Mucus Urine 1+ /hpf; RBC Urine 0-4 /hpf (0-2); Squamous Epithelial Cell Urine 0-4 /hpf (0-5); WBC Urine 0-4 /hpf (0-5)
[2024-03-23 13:28] LABS: Alanine Aminotransferase 19 U/L (0-33); Albumin Level 4.3 g/dL (3.5-5.2); Alkaline Phosphatase 73 U/L (35-105); Anion Gap 15.9 (5-19); Aspartate Amino Transferase 23 U/L (0-32); Blood Urea Nitrogen 12 mg/dL (8-23); Calcium 8.7 mg/dL (8.5-10.5); Carbon Dioxide 22 mmol/L (22-29); Chloride 111 mmol/L (98-107); Globulin 2.2 g/dL (1.3-4.6); Glucose 86 mg/dL (65-115); Osmolality Calculated 299 mOsm/kg (285-295); Potassium 3.9 mmol/L (3.5-5.1); Sodium 145 mmol/L (136-145); Total Bilirubin 0.3 mg/dL (0.15-1.2); Total Protein 6.5 g/dL (6.6-8.7)
[2024-03-23 14:15] LABS: Potassium, Radom Urine 21 mmol/L; Urine Creatinine 30 mg/dL (28-217); Urine Random Chloride 40 mmol/L; Urine Random Sodium 53 mmol/L
[2024-03-23 14:25] LABS: Total Volume 4100 mL; Total Volume Urine 4100 ml
== END 2024-03-23 12:36 | disposition home or self-care (01) ==
LOC: LAB 12:35
PROVIDERS: PCP Family Medicine; Visit Provider Internal Medicine
DX: R63.1 Polydipsia (principal); R35.89 Other polyuria; E78.5 Hyperlipidemia, unspecified; R35.0 Frequency of micturition; R73.03 Prediabetes
CPT/HCPCS: 80053; 81003; 81015; 82436; 82570; 82985; 83935; 84133; 84300; 84540

== ENCOUNTER → 2024-04-06 09:44 | Outpatient (BNVA) | payer OTHER, SELFPAY | PROVIDERS: PCP Family Medicine; Visit Provider Internal Medicine | DX: R35.89 Other polyuria (principal); R63.1 Polydipsia; F31.81 Bipolar II disorder; R73.03 Prediabetes; Z79.84 Long term (current) use of oral hypoglycemic drugs | CPT/HCPCS: 99214 ==

== ENCOUNTER → 2024-04-14 12:06 | Outpatient (BNVA) | payer OTHER, SELFPAY | PROVIDERS: PCP Family Medicine; Visit Provider Specialist | DX: M51.16 Intervertebral disc disorders with radiculopathy, lumbar region (principal); G43.711 Chronic migraine without aura, intractable, with status migrainosus; M53.3 Sacrococcygeal disorders, not elsewhere classified; R10.9 Unspecified abdominal pain; M46.1 Sacroiliitis, not elsewhere classified; R29.90 Unspecified symptoms and signs involving the nervous system; D75.89 Other specified diseases of blood and blood-forming organs; H53.9 Unspecified visual disturbance | CPT/HCPCS: 20552; 99214 ==

== ENCOUNTER → 2024-04-21 08:55 | Outpatient (BNVA) | payer OTHER, SELFPAY | PROVIDERS: PCP Family Medicine; Referring Provider Specialist; Visit Provider Student in an Organized Health Care Education/Training Program | DX: R10.9 Unspecified abdominal pain (principal) | CPT/HCPCS: 99204 ==

== ENCOUNTER 2024-05-16 09:09 | Day surgery (SDC) | payer OTHER, SELFPAY ==
[2024-05-16 09:33] VITALS: BP 117/69; PULSE 82; RESP 18; TEMP 36.2; O2SAT 95
[2024-05-16] MEDS: sodium chloride 0.9% 1,000 ML 30 ML IV (09:40)
--- NOTE | 2024-05-16 10:29 | ANES.PREANE2 ---
Pre-Anesthetic Assessment Height/Weight: Height 1.63 m Temp Pulse Resp BP Pulse Ox O2 Del Method 97.2 F L 82 18 117/69 95 Room Air 05/16/24 09:33 05/16/24 09:33 05/16/24 09:33 05/16/24 09:33 05/16/24 09:33 05/16/24 09:33 Preop Diagnosis: abdominal pain Operation Date: 05/16/24 10:15 Proposed Procedures p EGD 13392, 81806, G0105, R10.9, K21.9(Not Applicable) - Dima Estrada MD s Colonoscopy(Not Applicable) - Dima Estrada MD Familial anesthetic complications: none Was Beta Chelle taken within 24 hours: N/A Was Clonidine taken within 24 hours: N/A Last intake: Intake Last Liquid Date 05/15/24 Last Liquid Time 22:30 Last Solid Date 05/14/24 Last Solid Time 17:00 Social No alcohol and No tobacco Exam alert, oriented x 3, clear to auscultation bilaterally and regular rate & rhythm Airway Submandibular: within normal limits Cervical ROM: within normal limits Mallampati: Class I Dentition: false Pulmonary Asthma CV/HEM None reported Chronic Renal Insufficiency (history) and None reported Hepatic None reported GI Gastroesophageal Reflux Disease Metabolic Diabetes Mellitus and Hyperlipidemia Musc/skel Lower Back Pain Neuropsych Anxiety, Bipolar, Depression and Headache Anesthetic Plan ASA status: 3 Anesthesia: MAC Risk of > 500 ml blood loss (7ml/kg in children): No Medications/Allergies Home Medications Medication Instructions Recorded Confirmed Last Taken Type atorvastatin 80 mg tablet 80 mg PO DAILY 02/20/22 05/16/24 05/15/24 History fluticasone propionate 50 1 spray intranasal DAILY PRN 09/15/22 05/16/24 05/15/24 History mcg/actuation nasal allergies spray,suspension levocetirizine 5 mg tablet (Xyzal) 2.5 mg PO DAILY PRN allergies 09/15/22 05/16/24 05/14/24 History omeprazole 40 mg capsule,delayed 40 mg PO BID #180 caps 05/10/23 05/16/24 05/15/24 Rx release metformin 500 mg tablet 500 mg PO DAILY #90 tabs 09/13/23 05/16/24 05/11/24 Rx methocarbamol 750 mg tablet 750 mg PO Q8H #30 tabs 01/06/24 05/16/24 05/15/24 Rx tramadol 50 mg tablet 50 mg PO BID PRN pain #60 tabs 02/03/24 05/16/24 3 Weeks Ago Rx ~04/20/24 rizatriptan 10 mg tablet (Maxalt) 10 mg PO Q2H PRN migraine headache 03/14/24 05/16/24 3 Weeks Ago Rx #10 tabs ~04/20/24 topiramate 200 mg tablet 200 mg PO BID #60 tabs 03/17/24 05/16/24 05/15/24 Rx clonazepam 0.5 mg tablet 0.5 mg PO DAILY #30 tabs 04/17/24 05/16/24 05/15/24 Rx albuterol sulfate 90 mcg/actuation 2 puff inhalation Q4-5H PRN 05/11/24 05/16/24 05/12/24 History aerosol inhaler Wheezing aripiprazole 15 mg tablet 15 mg PO DAILY 05/11/24 05/16/24 05/15/24 History duloxetine 60 mg capsule,delayed 60 mg PO DAILY 05/11/24 05/16/24 05/15/24 History release Allergies Allergy/AdvReac Type Severity Reaction Status Date / Time codeine Allergy ADR-Nausea Verified 05/01/24 12:16 Penicillins Allergy ALGY-Rash Verified 05/01/24 12:16 Current Medications Generic Name Dose Route Start Last Admin Trade Name Freq PRN Reason Stop Dose Admin Sodium Chloride 1,000 mls @ 30 mls/hr 05/16/24 09:30 05/16/24 09:40 Sodium Chloride 0.9% IV 05/17/24 09:29 30 mls/hr .Q24H SOFIA Administration PFSH Anesthesia Medical History Prediabetes Asthma Kidney disease Addictive gambling Psychiatric care Surgical History (Updated 04/21/24 @ 09:34 by Dima Estrada MD) History of cholecystectomy History of tonsillectomy History of total knee arthroplasty right S/P cervical spinal fusion History of carpal tunnel release bilateral Family History Other Chronic kidney disease (CKD) Diabetes Social History Smoking and tobacco/nicotine status: never used tobacco/nicotine Second hand smoke exposure: No Alcohol intake: former Substance/Drug Use: never Data Anesthesia Cardiac Studies: No Data to Display
[2024-05-16 10:50] LABS: Glucose Point of Care 106 mg/dL (70-110)
--- NOTE | 2024-05-16 10:55 | W.PM.OPSUD ---
Surgery/Procedure H&P Update DATE OF PROCEDURE: May 16, 2024 DATE H&P PERFORMED: 05/01/24 H&P UPDATE INFORMATION: I have reviewed H&P completed within last 30 days, I have examined patient prior to procedure and No changes to prior documentation PREOP DIAGNOSIS: abdominal pain PLANNED PROCEDURE: Operation Date: 05/16/24 10:15 Proposed Procedures p EGD 95341, 76815, G0105, R10.9, K21.9(Not Applicable) - Dima Estrada MD s Colonoscopy(Not Applicable) - Dima Estrada MD
[2024-05-16 11:40] VITALS: BP 119/58; PULSE 70; RESP 12; TEMP 36.1; O2SAT 98
[2024-05-16 11:52] VITALS: BP 120/50; PULSE 71; RESP 14; O2SAT 97
[2024-05-16 12:07] VITALS: BP 116/55; PULSE 68; RESP 16; O2SAT 97
[2024-05-16] MEDS: acetaminophen 325 mg Tablet PO (12:15)
--- NOTE | 2024-05-16 12:40 | ANE.PACU2 ---
Inpatient post-anesthesia follow up: Airway intact: Yes Vital signs: Temperature 97 F Pulse Rate 68 Respiratory Rate 16 Blood Pressure 116/55 Pulse Oximetry 97 Oxygen Delivery Me thod Room Air Oxygen Flow Rate Fraction of Inspir ed Oxygen Hydration adequate: Yes Nausea and vomiting: No Pain level: 1 Mental status: Baseline
== END 2024-05-16 12:40 | disposition home or self-care (01) ==
PROVIDERS: PCP Family Medicine; Visit Provider Student in an Organized Health Care Education/Training Program
PROC: 0DJ08ZZ Inspection of Upper Intestinal Tract, Via Natural or Artificial Opening Endoscopic (ICD-10-PCS; CPT 43235; principal; 2024-05-16 10:15)
PROC: 0DJD8ZZ Inspection of Lower Intestinal Tract, Via Natural or Artificial Opening Endoscopic (ICD-10-PCS; CPT 45378; 2024-05-16 10:15)
DX: Z12.11 Encounter for screening for malignant neoplasm of colon (principal); K21.9 Gastro-esophageal reflux disease without esophagitis; Z79.84 Long term (current) use of oral hypoglycemic drugs; K29.70 Gastritis, unspecified, without bleeding; J45.909 Unspecified asthma, uncomplicated; E11.9 Type 2 diabetes mellitus without complications; E78.5 Hyperlipidemia, unspecified
CPT/HCPCS: 36416; 43239; 82962; 88305; G0121; J2704; J7030

== ENCOUNTER 2024-06-06 09:49 | Outpatient (CLI) | payer OTHER, SELFPAY ==
--- NOTE | 2024-06-06 09:52 | FL_ITS ---
WS: [id number] Exam: FL barium enema w air* [id number] Date/Time of Exam: 06/06/2024 10:08 AM Reason For Exam: SCREENING FOR MALIGNANT NEOPLASM OF COLON Air-contrast barium enema was performed. The colon fills to the cecum with reflux into the terminal ileum. On several early images there was a n area of constriction involving the RIGHT transverse colon however on final images this area was not ed to become patent and apparently represented spasm. Detailed images with compression paddle demonst rate no abnormality in this region. The haustral pattern is well-maintained. No masses were noted. Th e colon is markedly tortuous. A single diverticulum noted in the sigmoid region. FL/FL barium enema w air* [id number] IMPRESSION: 1. No indication of colonic mass or constricting lesion. 2. Single diverticulum in the sigmoid region.
== END 2024-06-06 09:50 | disposition home or self-care (01) ==
LOC: RAD 09:50
PROVIDERS: PCP Family Medicine; Visit Provider Student in an Organized Health Care Education/Training Program
DX: Z12.11 Encounter for screening for malignant neoplasm of colon (principal); K57.90 Diverticulosis of intestine, part unspecified, without perforation or abscess without bleeding
CPT/HCPCS: 74280

== ENCOUNTER → 2024-06-22 10:35 | Outpatient (BNVA) | payer OTHER, SELFPAY | PROVIDERS: PCP Family Medicine; Visit Provider Physician Assistant | DX: Z96.652 Presence of left artificial knee joint (principal) | CPT/HCPCS: 73560; 73565; 99213 ==

== ENCOUNTER → 2024-07-14 10:28 | Outpatient (BNVA) | payer OTHER, SELFPAY | PROVIDERS: PCP Family Medicine; Visit Provider Student in an Organized Health Care Education/Training Program | DX: Z09 Encounter for follow-up examination after completed treatment for conditions other than malignant neoplasm (principal) | CPT/HCPCS: 99213 ==

== ENCOUNTER → 2024-08-07 08:55 | Outpatient (BNVA) | payer MEDICARE, SELFPAY | PROVIDERS: PCP Family Medicine; Referring Provider Specialist; Visit Provider Anesthesiology Pain Medicine | DX: M47.816 Spondylosis without myelopathy or radiculopathy, lumbar region | CPT/HCPCS: 99204 ==

== ENCOUNTER 2024-08-24 12:15 | Outpatient (RCR) | payer MEDICARE, SELFPAY | END 2024-09-15 23:59 | disposition home or self-care (01) | LOC: SPT 12:15 | PROVIDERS: PCP Nurse Practitioner Adult Health; Visit Provider Nurse Practitioner Family | DX: M54.50 Low back pain, unspecified (principal) | CPT/HCPCS: 97110; 97161 ==

== ENCOUNTER 2024-09-19 12:29 | Outpatient (RCR) | payer MEDICARE, SELFPAY | END 2024-10-16 23:59 | disposition home or self-care (01) | LOC: SPT 12:29 | PROVIDERS: PCP Family Medicine; Visit Provider Nurse Practitioner Family | DX: M54.50 Low back pain, unspecified (principal) | CPT/HCPCS: 97110 ==

== ENCOUNTER 2024-10-03 15:16 | Outpatient (CLI) | payer MEDICARE, SELFPAY ==
[2024-10-03 16:32] LABS: Bilirubin Urine Negative (Negative); Blood Urine Negative (Negative); Glucose Urine UA Negative (Normal); Ketones Urine Negative (Negative); Leukocyte Esterase Urine 2+ (Negative); Nitrate Urine Negative (Negative); Protein Urine Negative (Negative); Urine Appearance Clear (CLEAR); Urine Color Yellow (Yellow); Urobilinogen Urine 0.2 mg/dL (Negative); pH Urine 6.5 (5-7)
[2024-10-03 16:40] LABS: Bacteria Urine None Seen /hpf; RBC Urine 0-2 /hpf (0-2); Squamous Epithelial Cell Urine 0-5 /hpf (0-5)
[2024-10-03 17:29] LABS: Anion Gap 17.8 (5-19); Blood Urea Nitrogen 11 mg/dL (8-23); Calcium 9.1 mg/dL (8.5-10.5); Carbon Dioxide 22 mmol/L (22-29); Chloride 108 mmol/L (98-107); Glucose 86 mg/dL (65-115); Osmolality Calculated 297 mOsm/kg (285-295); Potassium 3.8 mmol/L (3.5-5.1); Sodium 144 mmol/L (136-145)
== END 2024-10-03 15:17 | disposition home or self-care (01) ==
PROVIDERS: PCP Family Medicine; Visit Provider Nurse Practitioner Gerontology
DX: R35.89 Other polyuria (principal)
CPT/HCPCS: 36415; 80048; 81001

== ENCOUNTER → 2024-10-09 10:38 | Outpatient (BNVA) | payer MEDICARE, SELFPAY | PROVIDERS: PCP Family Medicine; Visit Provider Anesthesiology Pain Medicine | DX: M25.512 Pain in left shoulder (principal) | CPT/HCPCS: 73030 ==

== ENCOUNTER 2024-10-09 11:23 | Outpatient (CLI) | payer MEDICARE, SELFPAY ==
[2024-10-09 12:03] LABS: Bilirubin Urine Negative (Negative); Blood Urine Negative (Negative); Glucose Urine UA Negative (Normal); Ketones Urine Negative (Negative); Leukocyte Esterase Urine Negative (Negative); Nitrate Urine Negative (Negative); Protein Urine Negative (Negative); Specific Gravity, Urine 1.015 (1.005-1.030); Urine Appearance Clear (CLEAR); Urine Color Yellow (Yellow)
[2024-10-09 12:08] LABS: Bacteria Urine None Seen /hpf; Hyaline Casts Urine 0-4 /lpf; RBC Urine 0-2 /hpf (0-2); Squamous Epithelial Cell Urine 0-5 /hpf (0-5); WBC Urine 0-5 /hpf (0-5)
[2024-10-09 12:23] LABS: Anion Gap 15.2 (5-19); Blood Urea Nitrogen 17 mg/dL (8-23); Calcium 9.1 mg/dL (8.5-10.5); Carbon Dioxide 23 mmol/L (22-29); Chloride 108 mmol/L (98-107); Glucose 98 mg/dL (65-115); Osmolality Calculated 296 mOsm/kg (285-295); Potassium 4.2 mmol/L (3.5-5.1); Sodium 142 mmol/L (136-145)
== END 2024-10-09 11:24 | disposition home or self-care (01) ==
PROVIDERS: PCP Family Medicine; Visit Provider Nurse Practitioner Gerontology
DX: R35.89 Other polyuria (principal); M47.816 Spondylosis without myelopathy or radiculopathy, lumbar region; M25.512 Pain in left shoulder; M54.50 Low back pain, unspecified
CPT/HCPCS: 36415; 80048; 81001; 99214

== ENCOUNTER → 2024-10-18 09:05 | Outpatient (BNVA) | payer MEDICARE, SELFPAY | PROVIDERS: PCP Family Medicine; Visit Provider Anesthesiology Pain Medicine | DX: M19.012 Primary osteoarthritis, left shoulder (principal); M54.50 Low back pain, unspecified; M47.816 Spondylosis without myelopathy or radiculopathy, lumbar region | CPT/HCPCS: 20610; 99214; J1010; J3490 ==

== ENCOUNTER → 2024-10-31 08:38 | Outpatient (BNVA) | payer MEDICARE, SELFPAY | PROVIDERS: PCP Family Medicine; Visit Provider Anesthesiology Pain Medicine | DX: M54.50 Low back pain, unspecified (principal); M47.816 Spondylosis without myelopathy or radiculopathy, lumbar region | CPT/HCPCS: 99214 ==

== ENCOUNTER → 2024-11-08 09:07 | Outpatient (BNVA) | payer MEDICARE, SELFPAY | PROVIDERS: PCP Family Medicine; Visit Provider Anesthesiology Pain Medicine | DX: M54.16 Radiculopathy, lumbar region (principal); M54.50 Low back pain, unspecified | CPT/HCPCS: 64483; 64484; J1100; J3490; J9999 ==

== ENCOUNTER 2024-12-01 15:47 | Outpatient (CLI) | payer MEDICARE, SELFPAY ==
--- NOTE | 2024-12-01 15:58 | XRR_ITS ---
PROCEDURE INFORMATION: Exam: XR Chest Exam date and time: 12/01/2024 4:07 PM Age: 74 years old Clinical indication: Shortness of breath; Prior surgery; Surgery date: 6+ months; Surgery type: Lynx; Additional info: Left anterior mid chest/left shoulder pain post fall x 1 day ago; HX lynx procedure TECHNIQUE: Imaging protocol: Radiologic exam of the chest. Views: 2 views. COMPARISON: CR XR chest 2V* [id number] 09/01/2022 1:08 PM FINDINGS: Lungs: Lungs are clear. Pleural spaces: There is no pleural effusion or pneumothorax. Heart/Mediastinum: Cardiomediastinal contours are unremarkable. Radiodense ring noted at the GE junction. Bones/joints: Bones are unremarkable. Soft tissues: Right axillary surgical clips. XR/XR chest 2V* [id number] IMPRESSION: No acute findings.
--- NOTE | 2024-12-01 15:58 | XRR_ITS ---
PROCEDURE INFORMATION: Exam: XR Left Ribs Exam date and time: 12/01/2024 4:07 PM Age: 74 years old Clinical indication: Painful respiration; Prior surgery; Surgery date: 6+ months; Surgery type: Lynx; Additional info: Left anterior mid chest/left shoulder pain post fall x 1 day ago; HX lynx procedure TECHNIQUE: Imaging protocol: Radiologic exam of the left ribs. Views: 2 views. COMPARISON: CR XR chest 2V* [id number] 09/01/2022 1:08 PM FINDINGS: Bones/joints: No visible rib fracture. Soft tissues: Visible soft tissues are unremarkable. XR/XR ribs LT 2V* [id number] IMPRESSION: No visible rib fracture.
--- NOTE | 2024-12-01 15:58 | XRR_ITS ---
PROCEDURE INFORMATION: Exam: XR Left Shoulder Exam date and time: 12/01/2024 4:07 PM Age: 74 years old Clinical indication: Left anterior mid chest/left shoulder pain post fall x 1 day ago TECHNIQUE: Imaging protocol: Radiologic exam of the left shoulder. Views: 2 or more views. COMPARISON: CR XR shoulder LT min 2V* [id number] 10/09/2024 11:09 AM FINDINGS: Bones/joints: Glenohumeral and acromial clavicular alignment normal. No acute fracture. Soft tissues: Visible soft tissues are unremarkable. XR/XR shoulder LT min 2V* [id number] IMPRESSION: No acute findings.
== END 2024-12-01 15:48 | disposition home or self-care (01) ==
PROVIDERS: PCP Family Medicine; Visit Provider Nurse Practitioner Family
DX: R07.1 Chest pain on breathing (principal); W19.XXXA Unspecified fall, initial encounter; M25.512 Pain in left shoulder; R07.81 Pleurodynia
CPT/HCPCS: 71046; 71100; 73030

== ENCOUNTER → 2024-12-04 10:44 | Outpatient (BNVA) | payer MEDICARE, SELFPAY | PROVIDERS: PCP Family Medicine; Visit Provider Anesthesiology Pain Medicine | DX: M54.50 Low back pain, unspecified (principal); M47.816 Spondylosis without myelopathy or radiculopathy, lumbar region | CPT/HCPCS: 99214 ==

== ENCOUNTER 2025-01-15 14:21 | Outpatient (CLI) | payer MEDICARE, SELFPAY ==
[2025-01-15 15:22] LABS: Basophils % 0.7 %; Eosinophils # 0.1 10^3/uL (0.0-0.8); Eosinophils % 0.9 %; Hematocrit 45.2 % (36-47); Lymphocytes # 1.7 10^3/uL (0.8-4.8); Lymphocytes % 28.7 %; Mean Corpuscular HGB Conc 33.6 g/dL (30-55); Mean Corpuscular Volume 98.3 fl (85-98); Mean Platelet Volume 8.4 fL (7.4-10.4); Monocytes # 0.4 10^3/uL (0.2-0.9); Monocytes % 6.5 %; Nucleated Red Blood Cells % 0 %; Platelet Count 201 10^3/cmm (157-399); Red Cell Distribution Width 12.4 % (12.1-15.1); White Blood Count 5.86 10^3/uL (3.29-11.43)
[2025-01-15 15:58] LABS: Alanine Aminotransferase 14 U/L (0-33); Albumin Level 4.2 g/dL (3.5-5.2); Alkaline Phosphatase 52 U/L (35-105); Anion Gap 17.1 (5-19); Aspartate Amino Transferase 24 U/L (0-32); Blood Urea Nitrogen 16 mg/dL (8-23); Calcium 9.2 mg/dL (8.5-10.5); Carbon Dioxide 20 mmol/L (22-29); Chloride 109 mmol/L (98-107); Ferritin 80 ng/mL (15-150); Globulin 2.4 g/dL (1.3-4.6); Glucose 91 mg/dL (65-115); Iron 94 ug/dL (37-145); Osmolality Calculated 295 mOsm/kg (285-295); Percent Saturation 46.3 % (20-50); Potassium 4.1 mmol/L (3.5-5.1); Sodium 142 mmol/L (136-145); Thyroid Stimulating Hormone 2.19 uIU/mL (0.27-4.20); Total Bilirubin 0.5 mg/dL (0.15-1.2); Total Iron Binding Capacity 203 mcg/dl; Total Protein 6.6 g/dL (6.6-8.7); Unsaturated Iron Binding 109 ug/dL (112-347)
[2025-01-15 17:20] LABS: Free T4 Free Thyroxine 0.89 ng/dL (0.82-1.77)
== END 2025-01-15 14:22 | disposition home or self-care (01) ==
PROVIDERS: PCP Family Medicine; Visit Provider Nurse Practitioner Family
DX: L29.89 Other pruritus (principal); E78.00 Pure hypercholesterolemia, unspecified; L21.8 Other seborrheic dermatitis; L57.8 Other skin changes due to chronic exposure to nonionizing radiation; L81.4 Other melanin hyperpigmentation
CPT/HCPCS: 36415; 80053; 82728; 83540; 83550; 84439; 84443; 85025; 99214

== ENCOUNTER 2025-01-17 13:27 | Outpatient (RCR) | payer MEDICARE, SELFPAY | END 2025-02-15 23:59 | disposition home or self-care (01) | LOC: SPT 13:27 | PROVIDERS: PCP Family Medicine; Visit Provider Anesthesiology Pain Medicine | DX: M25.511 Pain in right shoulder (principal) | CPT/HCPCS: 97110; 97161 ==

== ENCOUNTER 2025-01-30 13:22 | Outpatient (CLI) | payer MEDICARE, SELFPAY ==
[2025-01-30 15:26] LABS: Hemoglobin 15.60 g/dL (11.27-16.99)
[2025-01-30 15:51] LABS: Albumin Level 4.5 g/dL (3.5-5.2); Anion Gap 20.2 (5-19); Blood Urea Nitrogen 13 mg/dL (8-23); Calcium 9.4 mg/dL (8.5-10.5); Carbon Dioxide 21 mmol/L (22-29); Chloride 105 mmol/L (98-107); Glucose 76 mg/dL (65-115); Magnesium 2.4 mg/dL (1.7-2.3); Osmolality Calculated 295 mOsm/kg (285-295); Potassium 3.2 mmol/L (3.5-5.1); Sodium 143 mmol/L (136-145)
[2025-01-30 15:53] LABS: Creatinine Urine, Random 24 mg/dL (28-217); Microalbum Creatinine Ratio Ur 208 mg/dL (0-20)
== END 2025-01-30 13:23 | disposition home or self-care (01) ==
PROVIDERS: PCP Family Medicine; Visit Provider Nurse Practitioner Gerontology
DX: E11.22 Type 2 diabetes mellitus with diabetic chronic kidney disease (principal); N18.2 Chronic kidney disease, stage 2 (mild); R35.89 Other polyuria
CPT/HCPCS: 36415; 80048; 82040; 82044; 83735; 84100; 85018

== ENCOUNTER 2025-02-12 12:00 | Outpatient (CLI) | payer MEDICARE, SELFPAY ==
[2025-02-12 12:46] LABS: Hemoglobin 14.20 g/dL (11.27-16.99)
[2025-02-12 13:08] LABS: Albumin Level 4.0 g/dL (3.5-5.2); Blood Urea Nitrogen 12 mg/dL (8-23); Calcium 9.1 mg/dL (8.5-10.5); Carbon Dioxide 18 mmol/L (22-29); Chloride 108 mmol/L (98-107); Glucose 92 mg/dL (65-115); Magnesium 2.2 mg/dL (1.7-2.3); Osmolality Calculated 291 mOsm/kg (285-295); Sodium 141 mmol/L (136-145)
[2025-02-12 13:11] LABS: Anion Gap 18.7 (5-19); Potassium 3.7 mmol/L (3.5-5.1)
[2025-02-12 13:12] LABS: Glucose Urine UA Negative (Normal); Nitrate Urine Negative (Negative); Specific Gravity, Urine 1.008 (1.005-1.030)
== END 2025-02-12 12:01 | disposition home or self-care (01) ==
PROVIDERS: PCP Family Medicine; Visit Provider Nurse Practitioner Gerontology
DX: R63.1 Polydipsia (principal); R35.89 Other polyuria; R73.03 Prediabetes; F31.81 Bipolar II disorder; L40.9 Psoriasis, unspecified
CPT/HCPCS: 36415; 80048; 81001; 82040; 83735; 84100; 85018; 87086; 99214

== ENCOUNTER 2025-02-14 12:59 | Outpatient (CLI) | payer MEDICARE, SELFPAY ==
[2025-02-15 11:02] LABS: Total Volume Urine 4200 ml
[2025-02-15 11:16] LABS: Creatinine 24 Hour Urine 966.0 mg/dL (601-1689)
== END 2025-02-14 13:00 | disposition home or self-care (01) ==
LOC: LAB 13:04
PROVIDERS: PCP Family Medicine; Visit Provider Nurse Practitioner Gerontology
DX: R35.89 Other polyuria (principal)
CPT/HCPCS: 82570

== ENCOUNTER → 2025-03-08 11:28 | Outpatient (BNVA) | payer MEDICARE, SELFPAY | PROVIDERS: PCP Family Medicine; Visit Provider Specialist | DX: M53.3 Sacrococcygeal disorders, not elsewhere classified (principal); M51.16 Intervertebral disc disorders with radiculopathy, lumbar region; G43.711 Chronic migraine without aura, intractable, with status migrainosus; R10.9 Unspecified abdominal pain; M46.1 Sacroiliitis, not elsewhere classified; M54.50 Low back pain, unspecified | CPT/HCPCS: 99214; J1010; J3490 ==

== ENCOUNTER 2025-03-27 14:45 | Outpatient (CLI) | payer MEDICARE, SELFPAY ==
--- NOTE | 2025-03-27 15:15 | MR_ITS ---
WS: [id number] MRI LUMBAR SPINE WITH AND WITHOUT HISTORY: M54.50 - Low back pain, unspecified COMPARISON: 02/24/2024 TECHNIQUE: Sagittal and axial multisequence imaging is submitted. Sagittal and axial T1 fat sat sequences post-MultiHance 15 cc IV. There is significant susceptibility artifact at the GE junction from known LINX device. This was also present on the prior exam. Mild increase in lumbar lordosis. Endplate Schmorl's nodes defects at T12 and L3. Mild compression of the inferior endplate of L3 is similar to the prior study. Although very subtle and partially obscured by the susceptibility artifact is edema within the inferior endplate of L1 and the superior endplate of L2. New since the prior study. Very mild loss of vertebral body height at L1 and L2. Conus terminates normally at L1-2 disc level. L1-L2: Bilateral facet joint arthritis. Mild ligamentum flavum and facet arthritis. Moderate bilateral foraminal stenosis. Stenosis has progressed since the prior study. L2-L3: Mild facet joint arthritis with disc bulging. Mild bilateral foraminal stenosis. L3-L4: Diffuse disc bulging with bilateral foraminal disc protrusions reidentified. Moderate ligamentum flavum and facet arthritis. Progression of central and foraminal stenosis. Moderate central and bilateral foraminal stenosis with mild subarticular recess encroachment. L4-L5: Diffuse disc bulging with ligamentum flavum and facet arthritis. RIGHT foraminal disc protrusion contacts the exiting RIGHT L4 nerve root. Similar to the prior study. Moderate RIGHT foraminal stenosis. L5-S1: Mild facet arthritis. No stenosis. Postcontrast images are negative for discitis or osteomyelitis. No enhancing masses. MR/MR lumbar spine wo/w con [id number] IMPRESSION: 1. Susceptibility artifact obscuring portions of the lumbar spine related to t he LINX device in the distal esophagus. 2. L3-4: Progression of central and foraminal stenosis with bilateral foramina l disc protrusions. Moderate central and bilateral foraminal stenosis. 3. New compression deformities involving L1 and L2. Marrow edema in the inferi or endplate of L1 and the superior endplate of L2 with loss of height estimated near 10%. No retropulsion. 4. Schmorl's nodes defect at L3 and T12 are unchanged. 5. L4-5: RIGHT foraminal disc protrusion contacting the exiting RIGHT L4 nerve root. Moderate RIGHT foraminal stenosis. No change. 6. Moderate bilateral foraminal stenosis at L1-2 has progressed since the prio r study. 7. Mild foraminal stenosis at L2-3.
[2025-03-27] MEDS: gadobenate dimeglumine 20 mL vial IV (16:01)
== END 2025-03-27 14:46 | disposition home or self-care (01) ==
LOC: RAD 14:50
PROVIDERS: PCP Family Medicine; Visit Provider Specialist
DX: M48.061 Spinal stenosis, lumbar region without neurogenic claudication (principal); M51.26 Other intervertebral disc displacement, lumbar region
CPT/HCPCS: 72158

== ENCOUNTER 2025-04-03 15:11 | Outpatient (CLI) | payer MEDICARE, SELFPAY ==
--- NOTE | 2025-04-03 15:30 | XR_ITS ---
WS: [id number] SCREENING DEXA SCAN [facility] CLINICAL INFORMATION: M81.0 - Age-related osteoporosis without current patholog... COMPARISON: None. FINDINGS: The L1-L4 bone mineral density measures 1.044 g/cm2. This corresponds to a T score score of -1.1 and Z score of 0.5. Left femoral neck bone mineral density measures 0.806 g/cm2. This corresponds to a T score of -1.6 and Z score of 0.0. Right femoral neck bone mineral density measures 0.783 g/cm2. This corresponds to a T score -1.8of and Z score of -0.2. Mean femoral neck bone mineral density measures 0.794 g/cm2. This corresponds to a T score of -1.7 and Z score of -0.1. XR/XR DEXA axial skeleton* [id number] IMPRESSION: Osteopenia lumbar spine. Osteopenia femoral necks. Patient's FRAX calculated 10 year probability for major osteoporotic fracture i s 21.9% and osteoporotic hip fracture is 5.8%.
== END 2025-04-03 15:12 | disposition home or self-care (01) ==
LOC: RAD 15:12
PROVIDERS: PCP Family Medicine; Visit Provider Family Medicine
DX: Z13.820 Encounter for screening for osteoporosis (principal); M85.80 Other specified disorders of bone density and structure, unspecified site; M51.362 Other intervertebral disc degeneration, lumbar region with discogenic back pain and lower extremity pain; M54.50 Low back pain, unspecified; M47.816 Spondylosis without myelopathy or radiculopathy, lumbar region
CPT/HCPCS: 77080; 99214

== ENCOUNTER → 2025-04-17 14:02 | Outpatient (BNVA) | payer MEDICARE, SELFPAY | PROVIDERS: PCP Family Medicine; Visit Provider Anesthesiology Pain Medicine | DX: M47.816 Spondylosis without myelopathy or radiculopathy, lumbar region (principal) | CPT/HCPCS: 64493; 64494; 64495; J3490; J9999 ==

== ENCOUNTER → 2025-04-24 08:56 | Outpatient (BNVA) | payer MEDICARE, SELFPAY | PROVIDERS: PCP Family Medicine; Visit Provider Anesthesiology Pain Medicine | DX: M51.362 Other intervertebral disc degeneration, lumbar region with discogenic back pain and lower extremity pain (principal); M47.816 Spondylosis without myelopathy or radiculopathy, lumbar region | CPT/HCPCS: 99214 ==

== ENCOUNTER → 2025-04-26 13:35 | Outpatient (BNVA) | payer MEDICARE, SELFPAY | PROVIDERS: PCP Family Medicine; Visit Provider Orthopaedic Surgery | DX: M47.27 Other spondylosis with radiculopathy, lumbosacral region (principal); M51.362 Other intervertebral disc degeneration, lumbar region with discogenic back pain and lower extremity pain; M54.2 Cervicalgia | CPT/HCPCS: 72050; 72072; 72110; 99213 ==

== ENCOUNTER 2025-04-30 11:20 | Outpatient (CLI) | payer MEDICARE, SELFPAY ==
--- NOTE | 2025-04-30 11:45 | MR_ITS ---
WS: [id number] MRI THORACIC SPINE WITHOUT CONTRAST TECHNIQUE: Sagittal T1, T2 and STIR imaging. Axial T2 imaging. Noncontrast imaging obtained. CLINICAL INFORMATION: Back pain FINDINGS: Mild thoracic curve. Moderate thoracic kyphosis. No acute compression fractures. Small disc protrusions in the thoracic spine more prominent at T2-3, T5-6, and T7-8. No significant central canal stenosis. Moderate facet arthropathy lower thoracic spine. Normal caliber descending thoracic aorta. MR/MR thoracic spin wo con* [id number] IMPRESSION: No acute thoracic spine findings.
== END 2025-04-30 11:21 | disposition home or self-care (01) ==
LOC: RAD 11:23
PROVIDERS: PCP Family Medicine; Visit Provider Orthopaedic Surgery
DX: M47.814 Spondylosis without myelopathy or radiculopathy, thoracic region (principal)
CPT/HCPCS: 72146

== ENCOUNTER → 2025-05-03 15:08 | Outpatient (BNVA) | payer MEDICARE, SELFPAY | PROVIDERS: PCP Family Medicine; Visit Provider Orthopaedic Surgery | DX: M47.814 Spondylosis without myelopathy or radiculopathy, thoracic region (principal); M47.27 Other spondylosis with radiculopathy, lumbosacral region; M51.362 Other intervertebral disc degeneration, lumbar region with discogenic back pain and lower extremity pain | CPT/HCPCS: 99213 ==

== ENCOUNTER → 2025-05-09 11:10 | Outpatient (BNVA) | payer MEDICARE, SELFPAY | PROVIDERS: PCP Family Medicine; Visit Provider Anesthesiology Pain Medicine | DX: M79.18 Myalgia, other site (principal); M51.362 Other intervertebral disc degeneration, lumbar region with discogenic back pain and lower extremity pain; M47.816 Spondylosis without myelopathy or radiculopathy, lumbar region | CPT/HCPCS: 20553; 99214; J1010; J3490 ==

== ENCOUNTER → 2025-05-15 13:00 | Outpatient (BNVA) | payer MEDICARE, SELFPAY | PROVIDERS: PCP Family Medicine; Visit Provider Family Medicine | DX: E55.9 Vitamin D deficiency, unspecified (principal); E78.5 Hyperlipidemia, unspecified; R73.03 Prediabetes; R68.2 Dry mouth, unspecified; L40.9 Psoriasis, unspecified; R79.89 Other specified abnormal findings of blood chemistry | CPT/HCPCS: 80053; 80061; 82306; 82607; 82746; 83036; 83735; 84439; 84443; 85027 ==

== ENCOUNTER → 2025-06-05 13:55 | Outpatient (BNVA) | payer MEDICARE, SELFPAY | PROVIDERS: PCP Family Medicine; Visit Provider Student in an Organized Health Care Education/Training Program | DX: Z96.652 Presence of left artificial knee joint (principal); Z48.89 Encounter for other specified surgical aftercare | CPT/HCPCS: 73560; 73565; 99213 ==

== ENCOUNTER 2025-07-03 13:51 | Outpatient (CLI) | payer MEDICARE, SELFPAY ==
[2025-07-03 15:09] LABS: Hemoglobin 14.10 g/dL (11.27-16.99)
[2025-07-03 15:12] LABS: Glucose Urine UA Negative (Normal); Nitrate Urine Negative (Negative); Specific Gravity, Urine 1.012 (1.005-1.030)
[2025-07-03 15:17] LABS: Add Urine Microscopic? YES
[2025-07-03 15:35] LABS: Albumin Level 4.1 g/dL (3.5-5.2); Anion Gap 14.0 (5-19); Blood Urea Nitrogen 13 mg/dL (8-23); Calcium 9.0 mg/dL (8.5-10.5); Carbon Dioxide 26 mmol/L (22-29); Chloride 106 mmol/L (98-107); Glucose 103 mg/dL (65-115); Magnesium 2.1 mg/dL (1.7-2.3); Osmolality Calculated 294 mOsm/kg (285-295); Potassium 4.0 mmol/L (3.5-5.1); Sodium 142 mmol/L (136-145)
[2025-07-03 15:41] LABS: Creatinine Urine, Random 50 mg/dL (28-217); Microalbum Creatinine Ratio Ur 20 mg/dL (0-20)
[2025-07-03 15:42] LABS: Calcium 9.2 mg/dL (8.5-10.5)
== END 2025-07-03 13:52 | disposition home or self-care (01) ==
LOC: LAB 13:53
PROVIDERS: PCP Family Medicine; Visit Provider Nurse Practitioner Gerontology
DX: N18.2 Chronic kidney disease, stage 2 (mild) (principal); E11.22 Type 2 diabetes mellitus with diabetic chronic kidney disease; R63.1 Polydipsia; R35.89 Other polyuria
CPT/HCPCS: 36415; 80048; 81001; 82040; 82044; 82310; 83735; 83970; 84100; 85018